=== PATIENT | male | born 1990 | race African-American/Black ===

== ENCOUNTER 2016-11-16 17:46 | Emergency (ER) | payer SELFPAY ==
[~2016-11-16] VITALS: Ht 177.8 cm; Wt 91.0 kg
[~2016-11-16 17:46] MED LIST: DOXY100C PO
[2016-11-16 18:01] VITALS: BP 128/67; PULSE 83; RESP 16; TEMP 98.8; O2SAT 99
--- NOTE | 2016-11-16 18:22 | PD ---
HPI Chief Complaint: Seizure Time Seen by Provider: 18:00 Travel History International Travel<30 days: No Contact w/Intl Traveler<30days: No Traveled to known affect area: No History of Present Illness HPI This 26-year-old male is brought by ambulance after having a seizure. He has a history of seizures and brain injury about 4 years ago. He fell and had a surgery on the left temporal area of his skull. He had seizures that started about a month after that. Recently he has been doing very well and has not been taking his medication because he has not been having seizures. He thinks he has not had a seizure for over 6 months. He was not drinking today. He feels well now. He does not recall the seizure PFSH Past Medical History Diminished Hearing: No Immunizations Current: Yes Seizures: Yes Past Surgical History Other Surgery: Yes (brain) Social History Alcohol Use: No Tobacco Use: Yes (5 cigs) Substance Use: No Allergies-Medications (Allergen,Severity, Reaction): Coded Allergies: PEANUTS (Verified Allergy, Severe, throat swells, 07/13/16) Reported Meds & Prescriptions Reported Meds & Active Scripts Active Doxycycline Hyclate 100 Mg Cap 100 Mg PO BID 10 Days Review of Systems General / Constitutional: No: Fever, Chills Eyes: No: Diploplia HENT: No: Headaches, Vertigo Cardiovascular: No: Chest Pain or Discomfort, Palpitations Respiratory: No: Cough, Shortness of Breath Gastrointestinal: No: Nausea, Vomiting Genitourinary: No: Urgency, Frequency, Oliguria Musculoskeletal: No: Myalgias, Arthralgias Skin: No Rash Neurologic: Positive: Seizures, No: Focal Abnormalities Endocrine: No: Heat Intolerance Hematologic/Lymphatic: No: Easy Bruising Physical Exam Narrative GENERAL: Well-developed male SKIN: Warm and dry. HEAD: Atraumatic. Normocephalic. EYES: Pupils equal and round. No scleral icterus. No injection or drainage. ENT: No nasal bleeding or discharge. Mucous membranes pink and moist. NECK: Trachea midline. No JVD. CARDIOVASCULAR: Regular rate and rhythm. No murmur appreciated. RESPIRATORY: No accessory muscle use. Clear to auscultation. Breath sounds equal bilaterally. GASTROINTESTINAL: Abdomen soft, non-tender, nondistended. Hepatic and splenic margins not palpable. MUSCULOSKELETAL: No obvious deformities. No clubbing. No cyanosis. No edema. NEUROLOGICAL: Awake and alert. No obvious cranial nerve deficits. Motor grossly within normal limits. Normal speech. PSYCHIATRIC: Appropriate mood and affect; insight and judgment normal. Data Data Last Documented VS Vital Signs Date Time Temp Pulse Resp B/P Pulse Ox O2 Delivery O2 Flow Rate FiO2 11/16/16 18:05 82 16 99 Room Air 11/16/16 18:01 98.8 128/67 MDM Medical Decision Making Medical Screen Exam Complete: Yes Emergency Medical Condition: Yes Medical Record Reviewed: Yes Differential Diagnosis Differential includes seizure disorder, noncompliance, Narrative Course This gentleman admits not to not taking his Keppra for several months. He does wish to be started on a prescription. He appears quite stable now and I don't think diagnostic testing is warranted Diagnosis Primary Impression: Seizure disorder Disposition: 01 DISCHARGE HOME Condition: Stable Duc Rawls MD Nov 16, 2016 18:22
[2016-11-16] MEDS ORDERED: LEVE500 PO (18:23)
[2016-11-16] MEDS ORDERED: levETIRAcetam 500 MG TAB PO ONE (18:30)
[2016-11-16] MEDS ORDERED: LEVE250 PO (18:31)
[2016-11-16 18:49] VITALS: BP 109/74
[2017-03-07] MEDS ORDERED: KEPP10002 PO (13:19)
== END 2016-11-16 19:14 | disposition home or self-care (01) ==
LOC: PHED 17:46
DX: G40.909 Epilepsy, unspecified, not intractable, without status epilepticus (principal); Z72.0 Tobacco use; Z86.69 Personal history of other diseases of the nervous system and sense organs
CPT/HCPCS: 99284

== ENCOUNTER 2017-02-05 23:01 | Emergency (ER) | payer SELFPAY ==
[~2017-02-05] VITALS: Ht 177.8 cm; Wt 96.5 kg
[~2017-02-05 23:01] MED LIST changes: -DOXY100C PO; +LEVE250 PO; +LEVE500 PO
[2017-02-05 23:23] VITALS: BP 122/76; PULSE 72; RESP 14; TEMP 98.1; O2SAT 99
[2017-02-05] MEDS ORDERED: LEVE250 PO (23:55)
[2017-03-07] MEDS ORDERED: KEPP10002 PO (13:19)
== END 2017-02-05 23:33 | disposition left against medical advice (07) ==
LOC: PHED 23:01
DX: S01.90XA Unspecified open wound of unspecified part of head, initial encounter (principal); X58.XXXA Exposure to other specified factors, initial encounter; Z53.21 Procedure and treatment not carried out due to patient leaving prior to being seen by health care provider
CPT/HCPCS: 99281

== ENCOUNTER 2017-02-05 23:40 | Inpatient (IN) | payer SELFPAY ==
[~2017-02-05] VITALS: Ht 180.3 cm; Wt 98.4 kg
[2017-02-05 23:42] VITALS: BP 120/83; PULSE 72; RESP 16; TEMP 98.6; O2SAT 98
[2017-02-05] MEDS ORDERED: LEVE250 PO (23:55)
[2017-02-06] VITALS (11 sets, daily range): BP systolic 120–141; BP diastolic 60–81; PULSE 58–78; RESP 16–20; TEMP 96.8–98; O2SAT 97–100
--- NOTE | 2017-02-06 01:23 | PD ---
HPI Chief Complaint: Head Injury Time Seen by Provider: 23:50 Travel History International Travel<30 days: No Contact w/Intl Traveler<30days: No Traveled to known affect area: No History of Present Illness HPI The patient is a 27 year old male who presents to the [facility] emergency department with a history of reportedly noticing scalp pain at 9 PM tonight. He reports that the scalp pain as a throbbing sensation. He reports that he began to palpate the area and noticed that there was a hard lump at the spot. The hard lump began to protrude through the skin and what appeared to be a piece of bone came out of the hole. The patient reports that his history is complicated by having a craniotomy related to an intracranial hemorrhage from a fall approximately a year and a half ago. His was reportedly in [place]. The patient reports that he has a history of seizure disorder after the intracranial hemorrhage. He reports that he has however not been on medication for seizure due to insurance problems. The patient reports that he last had a seizure a month and a half ago. He denies any recent trauma to his head or hitting his head. The patient reports that he is concerned that this is a piece the skull that came out of his scalp. The patient denies any recent fevers , cough, congestion, neck pain, chest pain, shortness of breath, abdominal pain , vomiting, diarrhea, urinary symptoms, or new neurologic symptoms. [facility] Past Medical History Narrative Medical The patient's past medical history is significant for an intracranial hemorrhage status post fall that is post craniotomy approximately a year and a half ago, history of seizure disorder, history of left shoulder decreased mobility after injury from prior seizure activity. Diminished Hearing: No Immunizations Current: Yes Seizures: Yes Influenza Vaccination: No Past Surgical History Narrative Surgical The patient's past surgical history is significant for a craniotomy. Other Surgery: Yes (brain) Social History Alcohol Use: Yes (occas. mix drinks) Tobacco Use: Yes (4-5 cigs a day) Substance Use: No Allergies-Medications (Allergen,Severity, Reaction): Coded Allergies: PEANUTS (Verified Allergy, Severe, throat swells, 02/05/17) Reported Meds & Prescriptions Reported Meds & Active Scripts Active Reported Keppra (Levetiracetam) 250 Mg Tab 500 Mg PO BID Narrative Medication He reports that he has not been taking this seizure medication due to problems with his insurance. Review of Systems Except as stated in HPI: all other systems reviewed are Neg General / Constitutional: No: Fever Eyes: No: Visual changes HENT: Positive: Headaches, No: Rhinorrhea, Congestion, Neck Stiffness, Neck Pain Cardiovascular: No: Chest Pain or Discomfort Respiratory: No: Cough, Shortness of Breath Gastrointestinal: No: Abdominal Pain Genitourinary: No: Dysuria Musculoskeletal: No: Pain Skin: Positive Other (scalp wound left side of head), No Rash Neurologic: No: Weakness, Focal Abnormalities, Change in Mentation, Slurred Speech, Sensory Disturbance Psychiatric: No: Depression Endocrine: No: Polydipsia Hematologic/Lymphatic: No: Easy Bruising Physical Exam Narrative General: The patient is a well-developed well-nourished male in no acute distress Head and Neck exam: Head is normocephalic, irregular shape to scalp and skull is noted on examination of the left side of the parietal and temporal scalp. The area of interest is a 0.5 cm defect with thin yellow drainage noted. This wound was cultured. There is no surrounding erythema, edema on examination, however the patient reports tenderness on palpation of the scalp surrounding the wound. Eyes: EOMI, pupils are equal round and reactive to light. Nose: Midline septum with pink mucous membranes Mouth: Dentition unremarkable. Moist mucus membranes. Posterior oropharynx is not erythematous. No tonsillar hypertrophy. Uvula midline. Airway patent. Neck: No palpable lymphadenopathy. No nuchal rigidity. No thyromegaly. Cardiovascular: Regular rate and rhythm without murmurs, gallops, or rubs. Lungs: Clear to auscultation bilaterally. No wheezes, rhonchi, or rales. Abdomen: Soft, without tenderness to palpation in all 4 quadrants of the abdomen. No guarding, rebound, or rigidity. Normal bowel sounds are audible. No tenderness on palpation of McBurney's point. Extremities: No clubbing, cyanosis, or edema. 2+ pulses in all 4 extremities. Back: No costovertebral angle tenderness to palpation. Neurologic Exam: Grossly nonfocal Skin Exam: No rash noted. Data Data Last Documented VS Vital Signs Date Time Temp Pulse Resp B/P Pulse Ox O2 Delivery O2 Flow Rate FiO2 02/06/17 02:06 98 Room Air 02/05/17 23:42 98.6 72 16 120/[address] Brain W/O Iv Contrast(Rout) (02/06/17 00:11) Wound Culture And Gram Stain (02/06/17 00:34) Complete Blood Count With Diff (02/06/17 01:46) Basic Metabolic Panel (Bmp) (02/06/17 01:46) Prothrombin Time / Inr (Pt) (02/06/17 01:46) Act Partial Throm Time (Ptt) (02/06/17 01:46) C-Reactive Protein (Crp) (02/06/17 01:46) Iv Access Insert/Monitor (02/06/17 01:46) Ecg Monitoring (02/06/17 01:46) Oximetry (02/06/17 01:46) Cefazolin 2 Gm Premix (Ancef 2 Gm Premix (02/06/17 02:00) Acetamin-Hydrocod 325-5 Mg ([place] 5-325 (02/06/17 02:00) Place In Observation (02/06/17 ) Vital Signs (Adult) Q4H (02/06/17 02:13) Activity Oob With Assistance (02/06/17 02:13) Crusher Wet Ground Mica / Telemetry .CONTINUOUS (02/06/17 02:13) Diet Heart Healthy (02/06/17 Breakfast) Sodium Chloride 0.9% Flush (Ns Flush) (02/06/17 02:15) Sodium Chloride 0.9% Flush (Ns Flush) (02/06/17 09:00) Case Management Consult (02/06/17 02:13) Naloxone Inj (Narcan Inj) (02/06/17 02:15) Consult Neurosurgery (02/06/17 ) Admit Order (Ed Use Only) (02/06/17 02:15) Labs Laboratory Tests Test 02/06/17 02:00 White Blood Count 9.7 TH/MM3 Red Blood Count 5.23 MIL/MM3 Hemoglobin 14.1 GM/DL Hematocrit 42.9 % Mean Corpuscular Volume 82.0 FL Mean Corpuscular Hemoglobin 26.9 PG Mean Corpuscular Hemoglobin 32.8 % Concent Red Cell Distribution Width 14.5 % Platelet Count 193 TH/MM3 Mean Platelet Volume 8.9 FL Neutrophils (%) (Auto) 61.2 % Lymphocytes (%) (Auto) 29.1 % Monocytes (%) (Auto) 7.9 % Eosinophils (%) (Auto) 1.3 % Basophils (%) (Auto) 0.5 % Neutrophils # (Auto) 5.9 TH/MM3 Lymphocytes # (Auto) 2.8 TH/MM3 Monocytes # (Auto) 0.8 TH/MM3 Eosinophils # (Auto) 0.1 TH/MM3 Basophils # (Auto) 0.1 TH/MM3 CBC Comment DIFF FINAL Differential Comment Prothrombin Time 11.0 SEC Prothromb Time International 1.0 RATIO Ratio Activated Partial 27.3 SEC Thromboplast Time Sodium Level 138 MEQ/L Potassium Level 5.1 MEQ/L Chloride Level 104 MEQ/L Carbon Dioxide Level 26.8 MEQ/L Anion Gap 7 MEQ/L Blood Urea Nitrogen 13 MG/DL Creatinine 0.62 MG/DL Estimat Glomerular Filtration 189 ML/MIN Rate Random Glucose 93 MG/DL Calcium Level 8.8 MG/DL C-Reactive Protein LESS THAN 0.29 MG/DL MDM Medical Decision Making Medical Screen Exam Complete: Yes Emergency Medical Condition: Yes Medical Record Reviewed: Yes Differential Diagnosis Skin infection, versus scalp wound tracking down to the dura Narrative Course During the course of the patients emergency department visit, the patients history, examination, and differential diagnosis were reviewed with the patient. The patient had a wound culture done of the scalp. The patient had a CT scan of the brain ordered. The patient was initially provided Lortab for pain. Radiology studies were reviewed and remarkable for white count is 9.7, hemoglobin 14.1, platelets 193 with a normal differential, basic metabolic profile is within normal limits, C-reactive protein is less than 0.29, PT PTT within normal limits The patients laboratory studies were reviewed and remarkable for CT scan of the brain shows evidence of a previous left frontal craniotomy with a few tiny bubbles of air in the deep subcutaneous tissues adjacent to the craniotomy flap which may indicate recent surgery or may reflect some type of penetrating injury. Given these findings, I did speak to the neurosurgeon on-call, Dr. Orellana. He requested that the patient be admitted to the hospitalist service. He requested that the patient be started on antibiotic and that he will see the patient's wound and images in consultation. The patients results were discussed with the patient, including the plan of care. I explained that further testing and/ or monitoring is indicated based on the patients history, examination, and/ or laboratory findings. Therefore, I recommended admission for additional evaluation. The patient expressed understanding and was agreeable with this plan. The patient was admitted to the hospital in stable condition and sent to a bed under the care of the [facility] hospitalist service. Physician Communication Physician Communication I Spoke to Dr. Orellana regarding the patient's findings on CT. He recommended that the patient be admitted to the hospitalist service and that he would see the patient in consultation and review the patient's wound on further examination as well as his imaging studies. He agreed with the plan for the patient to be started on antibiotic. The patient's case was discussed with Dr. Payne who did agree to admit the patient for further evaluation and treatment at this time. Diagnosis Primary Impression: Skin lesion Admitting Information Admitting Physician Requests: Nan Hu MD February 06, 2017 01:23
--- NOTE | 2017-02-06 01:25 | RADRPT ---
EXAM DATE/TIME: 02/06/2017 00:58 [place] COMPARISON: No previous studies available for comparison. INDICATIONS : Trauma, hit head. RADIATION DOSE: 42.12 CTDIvol (mGy) MEDICAL HISTORY : Seizures. Subdural hematoma. SURGICAL HISTORY : Craniotomy. ENCOUNTER: Initial ACUITY: 1 day PAIN SCALE: 5/10 LOCATION: cranial TECHNIQUE: Multiple contiguous axial images were obtained of the head. Using automated exposure control and adj ustment of the mA and/or kV according to patient size, radiation dose was kept as low as reasonably a chievable to obtain optimal diagnostic quality images. FINDINGS: The patient is status post left frontal craniotomy. There are a few tiny bubbles of air in the deep s ubcutaneous tissues adjacent to the craniotomy flap which may indicate recent surgery or may reflect some type of penetrating injury. Correlation recommended. There is moderate left orbitofrontal enceph alomalacia and mild left temporal encephalomalacia. There is very slight ex vacuo expansion of the fr ontal horn of left lateral ventricle. No evidence of brain shift or mass. No evidence of intracranial hemorrhage. There is nothing to suggest acute infarction or acute injury. The visualized facial sinuses and mastoids are clear. CONCLUSION: Previous left frontal craniotomy. Tiny bubbles of air in the subcutaneous tissues adjacent to the sole scraper niotomy flap as above. Underlying parenchymal brain encephalomalacia without evidence of acute intrac ranial process Flaco Schmidt MD on February 06, 2017 at 1:17 Board Certified Radiologist. This report was verified electronically.
[2017-02-06] MEDS ORDERED: ceFAZolin 2 GM PREMIX 50 ML IV ONE (02:00)
[2017-02-06] MEDS ORDERED: ACETAMINOPHEN/HYDROcodone 325 MG/5 MG TAB PO ONE (02:00)
[2017-02-06 02:08] LABS: AUTOMATED NEUTROPHIL # 5.9 TH/MM3 (1.8-7.7); BASOPHIL # 0.1 TH/MM3 (0-0.2); BASOPHIL % 0.5 % (0.0-2.0); EOSINOPHIL # 0.1 TH/MM3 (0-0.4); EOSINOPHIL % 1.3 % (0.0-4.0); HEMATOCRIT 42.9 % (39.0-51.0); HEMO FLAGS DIFF FINAL; LYMPH % 29.1 % (9.0-44.0); LYMPHOCYTE # 2.8 TH/MM3 (1.0-4.8); MEAN CORPUSCULAR HEMOGLOBIN 26.9 PG (27.0-34.0); MEAN CORPUSCULAR HGB CONC 32.8 % (32.0-36.0); MONO % 7.9 % (0.0-8.0); NEUT % 61.2 % (16.0-70.0); PLATELET COUNT 193 TH/MM3 (150-450); RED BLOOD COUNT 5.23 MIL/MM3 (4.50-5.90); RED CELL DISTRIBUTION WIDTH 14.5 % (11.6-17.2); WHITE BLOOD COUNT 9.7 TH/MM3 (4.0-11.0)
[2017-02-06] MEDS ORDERED: SODIUM CHLORIDE 0.9% FLUSH 10 ML FLUSH IV FLUSH PRN (02:15)
[2017-02-06] MEDS ORDERED: NALOXONE HCL 0.4 MG/ML AMP IV PRN (02:15)
[2017-02-06 02:24] LABS: APTT (PATIENT) 27.3 SEC (24.3-30.1)
[2017-02-06 02:30] LABS: ANION GAP 7 MEQ/L (5-15); BICARBONATE 26.8 MEQ/L (21.0-32.0); BLOOD UREA NITROGEN 13 MG/DL (7-18); CHLORIDE 104 MEQ/L (98-107); GLOMERULAR FILTRATION RATE 189 ML/MIN (>89); POTASSIUM 5.1 MEQ/L (3.5-5.1); SODIUM (NA) 138 MEQ/L (136-145)
--- NOTE | 2017-02-06 04:16 | HHI.HP ---
[facility] Primary Care Physician Admission Diagnosis Skull defect with scalp wound s/p remote craniotomy Diagnoses: Travel History International Travel<30 Days: No Contact w/Intl Traveler <30 Da: No Traveled to Known Affected Are: No History of Present Illness History from patient, ER physician communication, and review of medical records. Patient reported that last night, around 9 PM, he felt some headaches. He therefore checked his scalp, particularly at the prior surgical site area. He noted some discharge from the site and was able to scrape off some piece of skull reports he had craniotomy around this area about 1-1/2 years ago. He stated he suffered from seizures after this. Currently is under control with medications. He has been seizure free since 1-1/2 months ago. From that, patient denies any fevers/chills/nausea/vomiting/visual disturbance. Denies any dizziness/near syncopal episodes. Review of Systems Except as stated in HPI: all other systems reviewed are Neg Past Family Social History Past Medical History seizures post craniotomy Past Surgical History craniotomy 8th grade- right hip pin put in Allergies: Coded Allergies: PEANUTS (Verified Allergy, Severe, throat swells, 02/05/17) Family History none that he is aware of Social History social drinker 5 cigarrettes a day Physical Exam Vital Signs Vital Signs Date Time Temp Pulse Resp B/P Pulse Ox O2 Delivery O2 Flow Rate FiO2 02/06/17 03:43 98.0 67 18 122/60 100 02/06/17 02:51 60 16 124/81 99 Room Air 02/06/17 02:06 98 Room Air 02/05/17 23:42 98.6 72 16 120/83 98 Room Air Physical Exam GENERAL: This is a well-nourished, well-developed patient, in no apparent distress. SKIN: No rashes, ecchymoses or lesions. Cool and dry. HEAD: Atraumatic. Left temporal parietal area with visible tiny hole in the skull. Some discharge upon expression as well. EYES: No scleral icterus. No injection or drainage. ENT: Nose without bleeding, purulent drainage or septal hematoma. Airway patent. NECK: Trachea midline. No JVD Supple, nontender, no meningeal signs. CARDIOVASCULAR: Regular rate and rhythm without murmurs, gallops, or rubs. RESPIRATORY: Clear to auscultation. Breath sounds equal bilaterally. No wheezes , rales, or rhonchi. GASTROINTESTINAL: Abdomen soft, non-tender, nondistended. . No guarding. MUSCULOSKELETAL: Extremities without clubbing, cyanosis, or edema. No calf tenderness. NEUROLOGICAL: Awake and alert. Motor and sensory grossly within normal limits.Normal speech. Laboratory Laboratory Tests Test 02/06/17 02:00 White Blood Count 9.7 Red Blood Count 5.23 Hemoglobin 14.1 Hematocrit 42.9 Mean Corpuscular Volume 82.0 Mean Corpuscular Hemoglobin 26.9 Mean Corpuscular Hemoglobin 32.8 Concent Red Cell Distribution Width 14.5 Platelet Count 193 Mean Platelet Volume 8.9 Neutrophils (%) (Auto) 61.2 Lymphocytes (%) (Auto) 29.1 Monocytes (%) (Auto) 7.9 Eosinophils (%) (Auto) 1.3 Basophils (%) (Auto) 0.5 Neutrophils # (Auto) 5.9 Lymphocytes # (Auto) 2.8 Monocytes # (Auto) 0.8 Eosinophils # (Auto) 0.1 Basophils # (Auto) 0.1 CBC Comment DIFF FINAL Differential Comment Prothrombin Time 11.0 Prothromb Time International 1.0 Ratio Activated Partial 27.3 Thromboplast Time Sodium Level 138 Potassium Level 5.1 Chloride Level 104 Carbon Dioxide Level 26.8 Anion Gap 7 Blood Urea Nitrogen 13 Creatinine 0.62 Estimat Glomerular Filtration 189 Rate Random Glucose 93 Calcium Level 8.8 C-Reactive Protein LESS THAN 0.29 Date/Time Procedure Status Source Growth 02/06/17 00:40 Gram Stain Received Wound Scalp Pending 02/06/17 00:40 Wound Culture Received Wound Scalp Pending Result Diagram: 02/06/170 02/06/170 Imaging Last [address] 02/06/17 001 Signed Impressions: Service Date/Time: Monday, February 06, 2017 00:58 - CONCLUSION: Previous left frontal craniotomy. Tiny bubbles of air in the subcutaneous tissues adjacent to the craniotomy flap as above. Underlying parenchymal brain encephalomalacia without evidence of acute intracranial process Flaco Schmidt MD Assessment and Plan Assessment and Plan Impression: Tiny bubbles of air in the subcutaneous tissues adjacent to craniotomy flap etiology unclear. Patient does not look septic clinically. History of seizures History of craniotomystatus post traumatic fall injury about 1-1/2 years ago Plan: Cultures were sent. We'll follow up. For now, we will continue with cefazolin 1 g IV every 8 hours. Again, patient does not look septic. Neurosurgery opinion. Seizure precautions. Resume home meds. DVT prophylaxison SCD. Discussed Condition With patient, ER MD, nursing staff Ruben Payne MD February 06, 2017 04:16
[2017-02-06] MEDS: levETIRAcetam 500 MG TAB PO SCH ×2 (09:00→21:22)
[2017-02-06] MEDS: levETIRAcetam 250 MG TAB PO SCH ×2 (09:00→09:38)
[2017-02-06] MEDS: SODIUM CHLORIDE 0.9% FLUSH 10 ML FLUSH IV FLUSH SCH ×2 (09:37→21:22)
--- NOTE | 2017-02-06 09:50 | HHI.PR ---
Subjective Remarks Follow up headaches. Patient states he gets throbbing intermittent headaches when he wakes up. Has been out of his seizure medication for 2 months, due to lack of pcp and insurance. Denies any chest pain, dizziness, sob or fevers. Objective Vitals Vital Signs Date Time Temp Pulse Resp B/P Pulse Ox O2 Delivery O2 Flow Rate FiO2 02/06/17 07:33 97.7 68 18 132/75 98 02/06/17 05:03 61 02/06/17 04:44 97.4 69 20 126/74 98 02/06/17 03:43 98.0 67 18 122/60 100 02/06/17 02:51 60 16 124/81 99 Room Air 02/06/17 02:06 98 Room Air 02/05/17 23:42 98.6 72 16 120/83 98 Room Air I/O 02/05/17 02/05/17 02/05/17 02/06/17 02/06/17 02/06/17 06:59 14:59 22:59 06:59 14:59 22:59 Intake Total 120 ml Balance 120 ml Intake Oral 120 ml Result Diagram: 02/06/17 0200 02/06/17 0200 Imaging Last Impressions Head CT 02/06/17 0011 Signed Impressions: Service Date/Time: Monday, February 06, 2017 00:58 - CONCLUSION: Previous left frontal craniotomy. Tiny bubbles of air in the subcutaneous tissues adjacent to the craniotomy flap as above. Underlying parenchymal brain encephalomalacia without evidence of acute intracranial process Flaco Schmidt MD Objective Remarks GENERAL: This is a well-nourished, well-developed patient, in no apparent distress. SKIN: No rashes, ecchymoses or lesions. Cool and dry. HEAD: Atraumatic. Left temporal parietal area with visible tiny hole in the skull. Serous drainage noted EYES: No scleral icterus. No injection or drainage. ENT: Nose without bleeding, purulent drainage or septal hematoma. Airway patent. NECK: Trachea midline. No JVD Supple, nontender, no meningeal signs. CARDIOVASCULAR: Regular rate and rhythm without murmurs, gallops, or rubs. RESPIRATORY: Clear to auscultation. Breath sounds equal bilaterally. No wheezes , rales, or rhonchi. GASTROINTESTINAL: Abdomen soft, non-tender, nondistended. . No guarding. MUSCULOSKELETAL: Extremities without clubbing, cyanosis, or edema. No calf tenderness. NEUROLOGICAL: Awake and alert. Motor and sensory grossly within normal limits.Normal speech. Medications and IVs Current Medications Medications (Trade) Dose Ordered Sig/Lizeth Route Start Time Stop Time Status Last Admin (NS Flush) 2 ml UNSCH PRN IV FLUSH 02/06/17 02:15 (NS Flush) 2 ml BID IV FLUSH 02/06/17 09:00 02/06/17 09:37 Naloxone HCl 0.4 mg 0.4 mg UNSCH PRN IV 02/06/17 02:15 (Ancef Inj/NS Inj) 100 ml @ 200 mls/hr Q8H IV 02/06/17 10:00 02/06/17 09:37 (Keppra) 500 mg BID PO 02/06/17 09:00 Urinary Catheter: No Vascular Central Line Catheter: No A/P Problem List: (1) Seizure disorder ICD Code: G40.909 Status: Acute (2) Skin lesion ICD Code: L98.9 Status: Acute (3) Head ache ICD Code: R51 Status: Acute Assessment and Plan 27 y/o male with a history of craniotomy 1 1/2 years ago due to a fall and SDH, come to the ED with complaints of a headache and drainage from old craniotomy site. Patient has also been out of seizure medications for 2 months due to lack of insurance and PCP. No seizure activity in 2 months. Headache, secondary to Scalp wound, tiny hole in old craniotomy wound -Cultures were sent. We'll follow up. -Cont with cefazolin 1 g IV every 8 hours. -Consult Neurosurgery for recommendations -Pain management with PO [place] Seizure, chronic, off medications for 2 months -Seizure precautions. -Resume home meds, Keppra BID. Case management for medication assistance DVT prophylaxison SCD. Discharge Planning Pending neurosurgery consult Marisa Garcia February 06, 2017 09:50
[2017-02-06] MEDS: ACETAMINOPHEN/HYDROcodone 325 MG/5 MG TAB PO PRN ×3 (11:02→22:03)
--- NOTE | 2017-02-06 13:30 | MB ---
cc: TIO TONY M.D. DATE OF CONSULTATION 02/06/2017 REASON FOR CONSULTATION Left craniotomy wound dehiscence. HISTORY OF PRESENT ILLNESS This is a 27 year-old -[place] gentleman who relates having a left craniotomy in [place] after of traumatic cerebral hemorrhage. He subsequently also suffered from recurrent seizures and was placed on Keppra, but has not been compliant with this medication mainly because he states he cannot afford it and does not have medical insurance. He relates having generalized seizures every few months with the last seizure about a month and a half ago up. He denies any falls or trauma to the head associated with these seizures. Apparently he presented to the emergency room on May 08, 2016 and was found to have a left-sided facial swelling and a draining wound in the left temporal lesion. This was subsequent to his craniotomy. He states that he was placed on some antibiotics and this eventually cleared up. The past evening he started noticing left-sided throbbing pain in the scalp area and he also noticed a lump on this area which was tender and he started picking on this and noticed there was a small portion of bone that had protruded through the skin and subsequently started to drain small amounts of serosanguineous type fluid. No clear CSF drainage was noted. He states he has intermittent headaches since last evening, although improved after this drainage. CT scan of the head obtained reveals a left craniotomy bone flap with several small plates in place. There is partial absorption of the bone flap. There is some soft tissue air bubbles noted on the left side. There is an area of encephalomalacia in the left there is a large area of encephalomalacia on the left frontal lobe relate to his previous hemorrhage. No intracranial acute abnormality is noted. The emergency room physician obtained some cultures from this left scalp drainage area and he was started on IV Ancef. Denies any fevers or chills and his white count is normal. PAST MEDICAL HISTORY 1. Left frontal lobe hemorrhage status post craniotomy proximally two years ago in [place]. 2. Seizure disorder, noncompliance with seizure medications. MEDICATIONS Keppra 500 mg b.i.d. which he is not taking. ALLERGIES NO KNOWN DRUG ALLERGIES. SOCIAL HISTORY He is single. He smokes five seconds a day and drinks alcohol on a social basis. REVIEW OF SYSTEMS Complains of left-sided headache and has complained of mild intermittent drainage in the left frontotemporal aspect. No fevers or chills. No recent weight gain or weight loss. No double vision or blurred vision. He complains of difficulty with finding words and expression and short-term memory loss ever since his injury two years ago. Denies any weakness or incontinence or any numbness or paresthesias. No history of easy bleeding or bruising. He does experience generalized seizures every few months. LABORATORY STUDIES White blood cell count 9.7, hemoglobin 14.1, platelet count 193, PT 11, INR 1.0, PTT 27.3. Sodium 138, potassium 5.1, BUN 13, creatinine 0.62, glucose 93. EXAMINATION VITALS: Temperature 97.7, pulse is 68, respiratory rate 18, blood pressure 132/75, oxygen saturation 98% on room air. HEAD: He has about a 1 cm area of wound dehiscence in the mid frontal aspect and some serosanguineous slight fluid drainage noted. There is no soft tissue swelling or any erythema or any significant tenderness associated with this. NECK: Supple with no guarding or rigidity. CHEST: Clear bilaterally. HEART: Regular rate rhythm. Normal S1 and S2. ABDOMEN: Soft, nontender, positive bowel sounds. EXTREMITIES: No cyanosis or edema. NEUROLOGIC: He is awake and alert. Pupils are equal and reactive. Extraocular muscles are intact. Face is symmetric. Tongue is midline. He moves all four extremities with 5/5 strength. Negative Babinski. Light touch sensation intact. Speech is fluent. IMPRESSION 1. A history of a left frontal lobe traumatic hemorrhage status post craniotomy in [place] the proximally two years ago. He appears to have subsequent subgaleal infection which was treated with antibiotics over a year ago and appears to have resolved at that point. He now has a small area of wound dehiscence and relates bone fragment being extruded through this with underlying partial bone flap absorption. The differential diagnosis includes bone flap absorption with area of wound dehiscence, as well as underlying a bone flap osteomyelitis. No abscesses noted. 2. Seizure disorder with recurrent seizures and noncompliance with anticonvulsant medications. 3. Short-term memory loss with some mild expressive dysphasia related to the large left frontal lobe injury and subsequent encephalomalacia. PLAN I am concerned about the possibility of underlying bone flap osteomyelitis along with necrosis given the delayed wound dehiscence. We will see what the cultures grow out and also obtain a sed rate and continue on IV antibiotics. We will also consult infectious disease service for their opinion in this aspect. His seizure medications will be resumed. I have discussed the findings with the patient and further treatment options will depend on the evolution of his clinical course and further workup. He understands and is in agreement. MD KRISTIN Turner/SAPNA /11:02 AM /1:15 PM
--- NOTE | 2017-02-06 14:19 | PD.CONS ---
History of Present Illness Service Infectious Diseases Consult Requested By Dr Aurelio Orellana Reason for Consult Evaluate patient for possible bone flap osteomyelitis Primary Care Physician No Primary Care Physician Diagnoses: History of Present Illness Patient seen and examined. Records reviewed. Patient is a 27-year-old male, who had traumatic brain injury from a fall, has had previous left craniotomy and subsequently developed seizures after that. He has not been taking his anticonvulsant agents because he could not afford the medication. He gets very infrequent seizures. He presented to the hospital this time for evaluation of pain on the area where he had his craniotomy, and headache. He also got a piece of tissue, question bone and this worried him and he presented to the hospital for further evaluation and treatment. He has not really had any problem with that area in the past. He was diagnosed to have a left temporal abscess, folliculitis back in April 2016. On a reading that ER visit it was felt to be more of a superficial infection. Culture grew MSSA. He was given an oral antibiotic which he took for at least 10 days. He has not had any subsequent problem after that. He has not had any headache prior to this current problem. Denies any fever or chills or sweats. He has not had any recent trauma. Patient's last episode of seizure was about a month and a half ago. Since admission he has not been febrile. WBC is normal. ESR and C-reactive protein normal. Imaging study is concerning for possible infection overlying that bone flap. Patient still complaining of pain over he had the open wound. Infectious disease consultations were requested to evaluate the patient. Review of Systems Constitutional: DENIES: Fever, Chills, Night Sweats Eyes: DENIES: Eye pain Ears, nose, mouth, throat: DENIES: Nasal discharge, Oral lesions, Throat pain, Ear Pain, Sinus Pain, Toothache Respiratory: DENIES: Cough, Shortness of breath Cardiovascular: DENIES: Chest pain, Palpitations Gastrointestinal: DENIES: Abdominal pain, Diarrhea, Nausea, Vomiting, Difficulty Swallowing Genitourinary: DENIES: Dysuria Musculoskeletal: DENIES: Joint pain, Muscle aches, Joint Swelling, Back pain Integumentary: DENIES: Rash Neurologic: COMPLAINS OF: Headache, DENIES: Localized weakness Psychiatric: DENIES: Confusion, Hallucinations Past Family Social History Allergies: Coded Allergies: PEANUTS (Verified Allergy, Severe, throat swells, 02/05/17) Past Medical History TBI from fall Seizures post craniotomy Past Surgical History Previous craniotomy for L cerebral hemorrhage Active Ordered Medications Huy Mead Social History Lives with his sister Social drinker Smokes 5 cigarettes per day Denies illicit drugs Physical Exam Vital Signs Vital Signs Date Time Temp Pulse Resp B/P Pulse Ox O2 Delivery O2 Flow Rate FiO2 02/06/17 12:42 14 02/06/17 07:33 97.7 68 18 132/75 98 02/06/17 05:03 61 02/06/17 04:44 97.4 69 20 126/74 98 02/06/17 03:43 98.0 67 18 122/60 100 02/06/17 02:51 60 16 124/81 99 Room Air 02/06/17 02:06 98 Room Air 02/05/17 23:42 98.6 72 16 120/83 98 Room Air Physical Exam GENERAL: Patient is a well-nourished, well-developed patient, awake and alert , not in respiratory distress. SKIN: Warm and dry. No generalized rash, no ecchymoses and no evidence of embolic lesions. HEAD: Normocephalic. Has an open wound with crusting, tender to palpation. Anterior to this is an area with purulent drainage, not tender. No temporal wasting, or tenderness. EYES: [place] conjunctiva. No petechia or hemorrhage. Pupils equal, round and reactive to light. Extraocular movements full and intact. No scleral icterus. No injection or drainage. EARS, NOSE AND THROAT: Nose without bleeding or purulent nasal discharge. No sinus tenderness. Mucous membranes pink and moist. No oral lesions noted. No exudate. No oral thrush. NECK: Trachea midline. Supple and not tender, no meningeal signs CARDIOVASCULAR: Regular rate and rhythm. No murmurs, rubs or gallops heard RESPIRATORY: Clear to auscultation. Breath sounds equal bilaterally. No rales , wheezing or rhonchi ABDOMEN: Soft, non-tender, nondistended. Bowel sounds present and normoactive. No guarding. No rebound. No organomegaly. EXTREMITIES: No clubbing, cyanosis, or edema.No joint effusion, has good ROM. No calf tenderness. Well perfused and warm. NEUROLOGICAL: Awake and alert. Cranial nerves grossly intact. Motor grossly within normal limits. PSYCHIATRIC: Normal affect, calm and cooperative. LINE: No evidence of infection Laboratory Laboratory Tests Test 02/06/17 02/06/17 02:00 11:53 White Blood Count 9.7 Red Blood Count 5.23 Hemoglobin 14.1 Hematocrit 42.9 Mean Corpuscular Volume 82.0 Mean Corpuscular Hemoglobin 26.9 Mean Corpuscular Hemoglobin 32.8 Concent Red Cell Distribution Width 14.5 Platelet Count 193 Mean Platelet Volume 8.9 Neutrophils (%) (Auto) 61.2 Lymphocytes (%) (Auto) 29.1 Monocytes (%) (Auto) 7.9 Eosinophils (%) (Auto) 1.3 Basophils (%) (Auto) 0.5 Neutrophils # (Auto) 5.9 Lymphocytes # (Auto) 2.8 Monocytes # (Auto) 0.8 Eosinophils # (Auto) 0.1 Basophils # (Auto) 0.1 CBC Comment DIFF FINAL Differential Comment Prothrombin Time 11.0 Prothromb Time International 1.0 Ratio Activated Partial 27.3 Thromboplast Time Sodium Level 138 Potassium Level 5.1 Chloride Level 104 Carbon Dioxide Level 26.8 Anion Gap 7 Blood Urea Nitrogen 13 Creatinine 0.62 Estimat Glomerular Filtration 189 Rate Random Glucose 93 Calcium Level 8.8 C-Reactive Protein LESS THAN 0.29 Erythrocyte Sedimentation Rate 1 Date/Time Procedure Status Source Growth 02/06/17 00:40 Gram Stain - Final Resulted Wound Scalp 02/06/17 00:40 Wound Culture Resulted Wound Scalp Pending Result Diagram: 02/06/17 0200 02/06/17 0200 Imaging RADIOLOGY STUDIES/FILMS REVIEWED Head CT 02/06/17 0011 Signed Impressions: Service Date/Time: Monday, February 06, 2017 00:58 - CONCLUSION: Previous left frontal craniotomy. Tiny bubbles of air in the subcutaneous tissues adjacent to the craniotomy flap as above. Underlying parenchymal brain encephalomalacia without evidence of acute intracranial process Flaco Schmidt MD Assessment and Plan Assessment and Plan IMPRESSION Draining wound from previous craniotomy incision, has 2 draining areas, very worrisome for infected bone flap - ESR and CRP normal Previous L temporal area abscess with MSSA, ?same area involved RECOMMENDATION 2 BC Continue IV Ancef Patient has 2 draining areas now, and possibly needs some debridement and evaluation Neurosurgery following Follow C/S Course of Abx will depend on results of work-up I will follow along with you Thank you for this consultation Discussed Condition With Explained plan to the patient Goldie Clayton MD February 06, 2017 14:19
[2017-02-06] MEDS: ceFAZolin 2 GM PREMIX 50 ML IV SCH (17:33)
[2017-02-07] MEDS: ceFAZolin 2 GM PREMIX 50 ML IV SCH ×3 (01:40→17:22)
[2017-02-07] MEDS: ACETAMINOPHEN/HYDROcodone 325 MG/5 MG TAB PO PRN ×3 (03:58→17:21)
[2017-02-07 04:12] VITALS: BP 130/85; PULSE 73; RESP 16; TEMP 96.6; O2SAT 98
[2017-02-07 08:30] LABS: AUTOMATED NEUTROPHIL # 4.3 TH/MM3 (1.8-7.7); BASOPHIL % 0.3 % (0.0-2.0); EOSINOPHIL # 0.1 TH/MM3 (0-0.4); EOSINOPHIL % 1.7 % (0.0-4.0); HEMATOCRIT 42.9 % (39.0-51.0); HEMO FLAGS DIFF FINAL; LYMPH % 32.9 % (9.0-44.0); LYMPHOCYTE # 2.5 TH/MM3 (1.0-4.8); MEAN CELL VOLUME 82.8 FL (80.0-100.0); MEAN CORPUSCULAR HEMOGLOBIN 27.4 PG (27.0-34.0); MEAN CORPUSCULAR HGB CONC 33.1 % (32.0-36.0); MONO % 8.7 % (0.0-8.0); NEUT % 56.4 % (16.0-70.0); PLATELET COUNT 184 TH/MM3 (150-450); RED BLOOD COUNT 5.19 MIL/MM3 (4.50-5.90); RED CELL DISTRIBUTION WIDTH 14.3 % (11.6-17.2); WHITE BLOOD COUNT 7.7 TH/MM3 (4.0-11.0)
[2017-02-07 08:32] VITALS: BP 115/72; PULSE 59; RESP 20; TEMP 96.9; O2SAT 98
[2017-02-07] MEDS: levETIRAcetam 500 MG TAB PO SCH ×2 (09:43→21:55)
[2017-02-07] MEDS: SODIUM CHLORIDE 0.9% FLUSH 10 ML FLUSH IV FLUSH SCH ×2 (09:45→21:55)
[2017-02-07 11:06] VITALS: PULSE 102
--- NOTE | 2017-02-07 11:43 | HHI.PR ---
Subjective Remarks Follow up headache and old craniotomy wounds. Patient sitting up in bed watching TV. States Dr. Orellana was just in and may plan surgery on Sunday. He states he still has headaches but the medication is helping. Denies any chest pain, sob, fever or chills. Does state he has another wound on his head that he found. Lower then the first hole on the left temporal area, drainage yellowish serous fluid. Objective Vitals Vital Signs Date Time Temp Pulse Resp B/P Pulse Ox O2 Delivery O2 Flow Rate FiO2 02/07/17 11:06 102 02/07/17 08:32 96.9 59 20 115/72 98 02/07/17 04:12 96.6 73 16 130/85 98 02/06/17 22:46 97.1 64 17 141/66 98 02/06/17 21:31 58 02/06/17 20:37 96.8 64 18 121/77 98 02/06/17 17:31 16 02/06/17 15:06 97.6 78 18 120/80 97 I/O 02/06/17 02/06/17 02/06/17 02/07/17 02/07/17 02/07/17 07:00 15:00 23:00 07:00 15:00 23:00 Intake Total 120 ml 240 ml Balance 120 ml 240 ml Intake Oral 120 ml 240 ml # Voids 2 Result Diagram: 02/07/17 0721 02/06/17 0200 Imaging Last Impressions Head CT 02/06/17 0011 Signed Impressions: Service Date/Time: Monday, February 06, 2017 00:58 - CONCLUSION: Previous left frontal craniotomy. Tiny bubbles of air in the subcutaneous tissues adjacent to the craniotomy flap as above. Underlying parenchymal brain encephalomalacia without evidence of acute intracranial process Flaco Schmidt MD Objective Remarks GENERAL: This is a well-nourished, well-developed patient, in no apparent distress. SKIN: No rashes, ecchymoses or lesions. Cool and dry. HEAD: Atraumatic. Left temporal parietal area with visible 2 temporal holes in the skull. Yellowish Serous drainage noted EYES: No scleral icterus. No injection or drainage. ENT: Nose without bleeding, purulent drainage or septal hematoma. Airway patent. NECK: Trachea midline. No JVD Supple, nontender, no meningeal signs. CARDIOVASCULAR: Regular rate and rhythm without murmurs, gallops, or rubs. RESPIRATORY: Clear to auscultation. Breath sounds equal bilaterally. No wheezes , rales, or rhonchi. GASTROINTESTINAL: Abdomen soft, non-tender, nondistended. . No guarding. MUSCULOSKELETAL: Extremities without clubbing, cyanosis, or edema. No calf tenderness. NEUROLOGICAL: Awake and alert. Motor and sensory grossly within normal limits.Normal speech. Medications and IVs Current Medications Medications (Trade) Dose Ordered Sig/Lizeth Route Start Time Stop Time Status Last Admin (NS Flush) 2 ml UNSCH PRN IV FLUSH 02/06/17 02:15 (NS Flush) 2 ml BID IV FLUSH 02/06/17 09:00 02/07/17 09:45 (Narcan Inj) 0.4 mg UNSCH PRN IV 02/06/17 02:15 (Keppra) 500 mg BID PO 02/06/17 09:00 02/07/17 09:43 Acetaminophen/ Hydrocodone Bitart 1 tab 1 tab Q6H PRN PO 02/06/17 10:30 02/07/17 10:05 (Ancef 2 Gm Premix) 50 ml @ 100 mls/hr Q8H IV 02/06/17 18:00 02/07/17 09:45 A/P Problem List: (1) Seizure disorder ICD Code: G40.909 Status: Acute (2) Skin lesion ICD Code: L98.9 Status: Acute (3) Head ache ICD Code: R51 Status: Acute Assessment and Plan 27 y/o male with a history of craniotomy 1 1/2 years ago due to a fall and SDH, come to the ED with complaints of a headache and drainage from old craniotomy site. Patient has also been out of seizure medications for 2 months due to lack of insurance and PCP. No seizure activity in 2 months. Headache, secondary to Scalp wound, 2 temporal holes in old craniotomy wound, new one found below the first -Cultures were sent. We'll follow up. ID Following -Cont with cefazolin 1 g IV every 8 hours per ID. -Consult Neurosurgery for recommendations, possible surgery on Sunday -Pain management with PO [place] Seizure, chronic, off medications for 2 months -Seizure precautions. -Resume home meds, Keppra BID. Case management for medication assistance DVT prophylaxison SCD. Discharge Planning Surgery pending Marisa Garcia February 07, 2017 11:43
--- NOTE | 2017-02-07 11:54 | HHI.NSPN ---
History Interval History 27 year-old -[place]inamese gentleman who relates having a left craniotomy in [place] after of traumatic cerebral hemorrhage. He subsequently also suffered from recurrent seizures and was placed on Keppra, but has not been compliant with this medication mainly because he states he cannot afford it and does not have medical insurance. He relates having generalized seizures every few months with the last seizure about a month and a half ago up. He denies any falls or trauma to the head associated with these seizures. Apparently he presented to the emergency room on May 08, 2016 and was found to have a left-sided facial swelling and a draining wound in the left temporal lesion. This was subsequent to his craniotomy. He states that he was placed on some antibiotics and this eventually cleared up. The past evening he started noticing left-sided throbbing pain in the scalp area and he also noticed a lump on this area which was tender and he started picking on this and noticed there was a small portion of bone that had protruded through the skin and subsequently started to drain small amounts of serosanguineous type fluid. No clear CSF drainage was noted. He states he has intermittent headaches since last evening, although improved after this drainage. CT scan of the head obtained reveals a left craniotomy bone flap with several small plates in place. There is partial absorption of the bone flap. There is some soft tissue air bubbles noted on the left side. There is an area of encephalomalacia in the left there is a large area of encephalomalacia on the left frontal lobe relate to his previous hemorrhage. No intracranial acute abnormality is noted. The emergency room physician obtained some cultures from this left scalp drainage area and he was started on IV Ancef. Denies any fevers or chills and his white count is normal. 02/07: Has not noted much drainage from the scalp small areas of dehiscence. Review of Systems General: Negative for: fever, chills, insomnia Respiratory: Negative for: shortness of breath, cough, sputum Cardiovascular: Negative for: chest pain, palpitations, orthopnea Gastrointestinal: Negative for: nausea, vomitting, diarrhea, constipation Genitourinary: Negative for: urinary burning, urinary frequency, urinary urgency Exam Results Vital Signs Date Time Temp Pulse Resp B/P Pulse Ox O2 Delivery O2 Flow Rate FiO2 02/07/17 11:06 102 02/07/17 08:32 96.9 20 115/72 98 02/06/17 02:51 Room Air Intake and Output 02/06/17 02/06/17 02/07/17 08:00 16:00 00:00 Intake Total 120 ml Balance 120 ml Physical Examination HEAD: He has about a 1 cm area of wound dehiscence in the mid frontal aspect and no drainage noted. There is no soft tissue swelling or any erythema although does complain of tenderness along the frontal temporal aspect to palpation. NECK: Supple with no guarding or rigidity. CHEST: Clear bilaterally. HEART: Regular rate rhythm. Normal S1 and S2. ABDOMEN: Soft, nontender, positive bowel sounds. EXTREMITIES: No cyanosis or edema. NEUROLOGIC: He is awake and alert. Pupils are equal and reactive. Extraocular muscles are intact. Face is symmetric. Tongue is midline. He moves all four extremities with 5/5 strength. Negative Babinski. Light touch sensation intact. Speech is fluent. Lab, Micro, Other Results Laboratory Tests Test 02/07/17 07:21 White Blood Count 7.7 Red Blood Count 5.19 Hemoglobin 14.2 Hematocrit 42.9 Mean Corpuscular Volume 82.8 Mean Corpuscular Hemoglobin 27.4 Mean Corpuscular Hemoglobin 33.1 Concent Red Cell Distribution Width 14.3 Platelet Count 184 Mean Platelet Volume 9.1 Neutrophils (%) (Auto) 56.4 Lymphocytes (%) (Auto) 32.9 Monocytes (%) (Auto) 8.7 Eosinophils (%) (Auto) 1.7 Basophils (%) (Auto) 0.3 Neutrophils # (Auto) 4.3 Lymphocytes # (Auto) 2.5 Monocytes # (Auto) 0.7 Eosinophils # (Auto) 0.1 Basophils # (Auto) 0.0 CBC Comment DIFF FINAL Differential Comment Date/Time Procedure Status Source Growth 02/06/17 19:09 Aerobic Blood Culture - Preliminary Resulted Blood Peripheral NO GROWTH IN 1 DAY 02/06/17 19:09 Anaerobic Blood Culture - Preliminary Resulted Blood Peripheral NO GROWTH IN 1 DAY 02/06/17 00:40 Gram Stain - Final Resulted Wound Scalp 02/06/17 00:40 Wound Culture - Preliminary Resulted Staphylococcus Aureus Medical Decision Making Impression and Plan 27-year-old man with a remote history of left craniotomy for frontal lobe hemorrhage evacuation and now appears to have small areas of wound dehiscence without much drainage. He is on IV Ancef and cultures are growing out staph aureus. I'm concerned about the possibility of underlying osteomyelitis with bone flap necrosis and discussed debridement with craniectomy and possible bone flap removal. He informs me that his mother would like to be here for the surgery and currently she is in the [place]. Accordingly we'll continue with medical management for now and plan for debridement the next few days so his mother can travel back here. Toy Orellana MD February 07, 2017 11:54
[2017-02-07 12:24] VITALS: BP 131/83; PULSE 62; RESP 20; TEMP 97.4; O2SAT 98
[2017-02-07 12:58] LABS: ALT (GPT) 54 U/L (12-78)
[2017-02-07 13:01] LABS: ALKALINE PHOSPHATASE 36 U/L (45-117); ANION GAP 10 MEQ/L (5-15); AST (GOT) 36 U/L (15-37); BICARBONATE 22.9 MEQ/L (21.0-32.0); BLOOD UREA NITROGEN 15 MG/DL (7-18); CHLORIDE 106 MEQ/L (98-107); GLOMERULAR FILTRATION RATE 147 ML/MIN (>89); POTASSIUM 4.3 MEQ/L (3.5-5.1); SODIUM (NA) 139 MEQ/L (136-145); TOTAL BILIRUBIN ADULT 0.2 MG/DL (0.2-1.0)
[2017-02-07 16:01] VITALS: BP 135/69; PULSE 64; RESP 20; TEMP 97.2; O2SAT 98
[2017-02-07 20:00] VITALS: BP 133/85; PULSE 63; RESP 20; TEMP 96.5; O2SAT 97
[2017-02-07] MEDS: ACETAMINOPHEN/HYDROcodone 325 MG/10 MG TAB PO PRN (23:50)
[2017-02-08] VITALS (7 sets, daily range): BP systolic 101–138; BP diastolic 58–81; PULSE 57–68; RESP 20; TEMP 96.6–98.3; O2SAT 91–100
[2017-02-08] MEDS: ceFAZolin 2 GM PREMIX 50 ML IV SCH ×3 (01:40→17:49)
--- NOTE | 2017-02-08 02:41 | RADRPT ---
EXAM DATE/TIME: 02/08/2017 02:27 [facility] COMPARISON: CT BRAIN W/O CONTRAST, February 06, 2017, 0:58. INDICATIONS : Follow up for osteomyelitis. RADIATION DOSE: 40.46 CTDIvol (mGy) MEDICAL HISTORY : Seizures. Subdural hematoma SURGICAL HISTORY : Craniotomy. ENCOUNTER: Subsequent ACUITY: 2 days PAIN SCALE: 4/10 LOCATION: cranial TECHNIQUE: Multiple contiguous axial images were obtained of the head. Using automated exposure control and adj ustment of the mA and/or kV according to patient size, radiation dose was kept as low as reasonably a chievable to obtain optimal diagnostic quality images. FINDINGS: Soft tissue air adjacent to previous left frontal craniotomy has resolved in the interim. Intracrania l structures are stable with encephalomalacia in the left frontal and temporal regions, unchanged. No new acute findings identified. Specifically, no evidence of intracranial mass or hemorrhage. Nothing to suggest acute infarction. Extracranial structures otherwise stable, benign and intact. CONCLUSION: Interval resolution of soft tissue air adjacent to previous left frontal craniotomy. Stable brain leticia earance. Flaco Schmidt MD on February 08, 2017 at 2:34 Board Certified Radiologist. This report was verified electronically.
[2017-02-08] MEDS: ACETAMINOPHEN/HYDROcodone 325 MG/10 MG TAB PO PRN ×3 (06:31→18:46)
[2017-02-08] MEDS: levETIRAcetam 500 MG TAB PO SCH ×2 (09:52→21:44)
[2017-02-08] MEDS: SODIUM CHLORIDE 0.9% FLUSH 10 ML FLUSH IV FLUSH SCH ×2 (09:53→21:44)
--- NOTE | 2017-02-08 10:11 | HHI.NSPN ---
(Shamir Taylor) History Chief Complaint: left headache with wound dehiscence and drainage. (Shamir Taylor) Interval History 27 year-old -[place] gentleman who relates having a left craniotomy in [place] after of traumatic cerebral hemorrhage. He subsequently also suffered from recurrent seizures and was placed on Keppra, but has not been compliant with this medication mainly because he states he cannot afford it and does not have medical insurance. He relates having generalized seizures every few months with the last seizure about a month and a half ago up. He denies any falls or trauma to the head associated with these seizures. Apparently he presented to the emergency room on May 08, 2016 and was found to have a left-sided facial swelling and a draining wound in the left temporal lesion. This was subsequent to his craniotomy. He states that he was placed on some antibiotics and this eventually cleared up. The past evening he started noticing left-sided throbbing pain in the scalp area and he also noticed a lump on this area which was tender and he started picking on this and noticed there was a small portion of bone that had protruded through the skin and subsequently started to drain small amounts of serosanguineous type fluid. No clear CSF drainage was noted. He states he has intermittent headaches since last evening, although improved after this drainage. CT scan of the head obtained reveals a left craniotomy bone flap with several small plates in place. There is partial absorption of the bone flap. There is some soft tissue air bubbles noted on the left side. There is an area of encephalomalacia in the left there is a large area of encephalomalacia on the left frontal lobe relate to his previous hemorrhage. No intracranial acute abnormality is noted. The emergency room physician obtained some cultures from this left scalp drainage area and he was started on IV Ancef. Denies any fevers or chills and his white count is normal. 02/07: Has not noted much drainage from the scalp small areas of dehiscence. 02/08/17: Pt awake and alert. Complains of headaches left temporal and parietal area. No other neurologic symptoms such as nausea, vomiting, paresthesias or weakness. Patient denies any fever or chills. (Shamir Taylor) Review of Systems General: Negative for: fever, chills, insomnia Respiratory: Negative for: shortness of breath, cough, sputum Cardiovascular: Negative for: chest pain Gastrointestinal: Negative for: nausea, vomitting, diarrhea, constipation ( Shamir Taylor) Exam Results Vital Signs Date Time Temp Pulse Resp B/P Pulse Ox O2 Delivery O2 Flow Rate FiO2 02/08/17 09:07 96.6 57 20 101/67 100 02/06/17 02:51 Room Air Intake and Output 02/07/17 02/07/17 02/08/17 08:00 16:00 00:00 Intake Total 240 ml 360 ml 240 ml Balance 240 ml 360 ml 240 ml (Shamir Taylor) Physical Examination HEAD: He has about a 1 cm area of wound dehiscence in the mid frontal aspect and there is some wetness in the area and I detect a little bit of an odor of the patient denies this. There is no soft tissue swelling or any erythema although does complain of tenderness along the frontal temporal aspect to palpation. NECK: Supple with no guarding or rigidity. CHEST: Clear to auscultation bilaterally. HEART: Regular rate rhythm. Normal S1 and S2. ABDOMEN: Soft, nontender, positive bowel sounds. EXTREMITIES: No cyanosis or edema. NEUROLOGIC: He is awake and alert. Pupils are equal and reactive. Extraocular muscles are intact. Face is symmetric. Tongue is midline. Negative Babinski. Light touch sensation intact. Speech is fluent. Muscle: He moves all four extremities with 5/5 strength. (Shamir Taylor) Lab, Micro, Other Results Last Impressions Head CT 02/07/17 0000 Signed Impressions: Service Date/Time: February 02:27 - CONCLUSION: Interval resolution of soft tissue air adjacent to previous left frontal craniotomy. Stable brain appearance. Flaco Schmidt MD 02/07/17 02/07/17 02/08/17 15:00 23:00 07:00 Intake Total 360 ml 240 ml Balance 360 ml 240 ml Intake Oral 360 ml 240 ml # Voids 4 1 1 # Bowel Movements 0 (Shamir Taylor) Medical Decision Making Impression and Plan A: 27-year-old man with a remote history of left craniotomy for frontal lobe hemorrhage evacuation and now appears to have small areas of wound dehiscence without much drainage. He is on IV Ancef and cultures are growing out staph aureus. I'm concerned about the possibility of underlying osteomyelitis with bone flap necrosis and discussed debridement with craniectomy and possible bone flap removal. He informs me that his mother would like to be here for the surgery and currently she is in the [place]. Accordingly we'll continue with medical management for now and plan for debridement the next few days so his mother can travel back here. He states she is coming in at the end of the day. P: Continue with antibiotics. Continue with neuro checks. We will discuss further treatment plan when patient's mother is available. (Shamir Taylor) Attending Statement The exam, history, and the medical decision-making described in the above note were completed with the assistance of the mid-level provider. I reviewed and agree with the findings presented. I attest that I had a [id number] encounter with the patient on the same day, and personally performed and documented my assessment and findings in the medical record. Discussed the procedure of a left scalp debridement with the removal of infected bone flap decompressive craniectomy skull bone debridement. Subsequently he will need prolonged course of antibiotics and this stage to skull defect reconstruction/ cranioplasty at a later date. The risks and benefits involved the procedure were discussed along with the option of nonsurgical management with the pros and cons of each approach. He is requesting of her proceed tomorrow and states that his mother is arriving tonight to see him prior to surgery. (Toy Orellana MD) Shamir Taylor Feb 08, 2017 10:11 Toy Orellana MD Feb 08, 2017 17:25
[2017-02-08] MEDS: MORPHINE SULFATE 4 MG/ML INJ IV PUSH PRN ×2 (15:17→21:44)
--- NOTE | 2017-02-08 16:14 | HHI.PR ---
Subjective Remarks Follow up headaches. Patient states he is getting worsening headaches each day. Huy does not seem to work long. Denies any vision changes, chest pain, or sob. Objective Vitals Vital Signs Date Time Temp Pulse Resp B/P Pulse Ox O2 Delivery O2 Flow Rate FiO2 02/08/17 12:07 96.9 62 20 120/69 100 02/08/17 09:52 57 02/08/17 09:07 96.6 57 20 101/67 100 02/08/17 04:00 96.9 63 20 102/58 96 02/08/17 00:00 98.3 67 20 138/75 91 02/07/17 20:00 96.5 63 20 133/85 97 I/O 02/07/17 02/07/17 02/07/17 02/08/17 02/08/17 02/08/17 07:00 15:00 23:00 07:00 15:00 23:00 Intake Total 240 ml 360 ml 240 ml Balance 240 ml 360 ml 240 ml Intake Oral 240 ml 360 ml 240 ml # Voids 2 4 1 1 # Bowel Movements 0 Result Diagram: 02/07/17 0721 02/07/17 0721 Imaging Last Impressions Head CT 02/07/17 0000 Signed Impressions: Service Date/Time: February 02:27 - CONCLUSION: Interval resolution of soft tissue air adjacent to previous left frontal craniotomy. Stable brain appearance. Flaco Schmidt MD Objective Remarks GENERAL: This is a well-nourished, well-developed patient, in no apparent distress. SKIN: No rashes, ecchymoses or lesions. Cool and dry. HEAD: Atraumatic. Left temporal parietal area with visible 2 temporal holes in the skull. Yellowish Serous drainage noted EYES: No scleral icterus. No injection or drainage. ENT: Nose without bleeding, purulent drainage or septal hematoma. Airway patent. NECK: Trachea midline. No JVD Supple, nontender, no meningeal signs. CARDIOVASCULAR: Regular rate and rhythm without murmurs, gallops, or rubs. RESPIRATORY: Clear to auscultation. Breath sounds equal bilaterally. No wheezes , rales, or rhonchi. GASTROINTESTINAL: Abdomen soft, non-tender, nondistended. . No guarding. MUSCULOSKELETAL: Extremities without clubbing, cyanosis, or edema. No calf tenderness. NEUROLOGICAL: Awake and alert. Motor and sensory grossly within normal limits.Normal speech. Medications and IVs Current Medications Medications (Trade) Dose Ordered Sig/Lizeth Route Start Time Stop Time Status Last Admin (NS Flush) 2 ml UNSCH PRN IV FLUSH 02/06/17 02:15 (NS Flush) 2 ml BID IV FLUSH 02/06/17 09:00 02/08/17 09:53 (Narcan Inj) 0.4 mg UNSCH PRN IV 02/06/17 02:15 Levetriacetam 500 mg 500 mg BID PO 02/06/17 09:00 02/08/17 09:52 (Ancef 2 Gm Premix) 50 ml @ 100 mls/hr Q8H IV 02/06/17 18:00 02/08/17 09:52 ([place] 10-325 Mg) 1 tab Q6H PRN PO 02/07/17 23:30 02/08/17 12:19 (Morphine Inj) 2 mg Q3H PRN IV PUSH 02/08/17 15:00 02/08/17 15:17 A/P Problem List: (1) Seizure disorder ICD Code: G40.909 Status: Acute (2) Skin lesion ICD Code: L98.9 Status: Acute (3) Head ache ICD Code: R51 Status: Acute Assessment and Plan 27 y/o male with a history of craniotomy 1 1/2 years ago due to a fall and SDH, come to the ED with complaints of a headache and drainage from old craniotomy site. Patient has also been out of seizure medications for 2 months due to lack of insurance and PCP. No seizure activity in 2 months. Headache, secondary to Scalp wound, 2 temporal holes in old craniotomy wound, new one found below the first -Cultures were sent. We'll follow up. ID Following -Cont with cefazolin 1 g IV every 8 hours per ID. -Consult Neurosurgery for recommendations, surgery on Sunday -Pain management with PO [place], add IV morphine Seizure, chronic, off medications for 2 months -Seizure precautions. -Resume home meds, Keppra BID. Case management for medication assistance DVT prophylaxison SCD. Discharge Planning Surgery pending Sunday Marisa Garcia Feb 08, 2017 16:14
--- NOTE | 2017-02-08 16:33 | HHI.IDPN ---
Subjective Subjective Remarks 27 year old male, Hx TBI, had craniotomy about 2 years ago, has had problem with SZ, not taking meds, admited for evaluation of draining open wound on his craniotomy site C/S with MSSA Notes reviewed OR plans for tomorrow Has 3 areas with matted hair which I believe are areas of intermittent drainage. Most tender in the dehisced are No fever Antibiotics Ancef Lines PIV Past Medical History Reviewed Allergies: Coded Allergies: PEANUTS (Verified Allergy, Severe, throat swells, 02/05/17) Objective . Vital Signs Date Time Temp Pulse Resp B/P Pulse Ox O2 Delivery O2 Flow Rate FiO2 02/08/17 16:13 97.1 68 20 120/81 100 02/08/17 12:07 96.9 62 20 120/69 100 02/08/17 09:52 57 02/08/17 09:07 96.6 57 20 101/67 100 02/08/17 04:00 96.9 63 20 102/58 96 02/08/17 00:00 98.3 67 20 138/75 91 02/07/17 20:00 96.5 63 20 133/85 97 02/07/17 02/07/17 02/08/17 15:00 23:00 07:00 Intake Total 360 ml 240 ml Balance 360 ml 240 ml Intake Oral 360 ml 240 ml # Voids 4 1 1 # Bowel Movements 0 . Laboratory Tests Test 02/07/17 07:21 White Blood Count 7.7 TH/MM3 Red Blood Count 5.19 MIL/MM3 Hemoglobin 14.2 GM/DL Hematocrit 42.9 % Mean Corpuscular Volume 82.8 FL Mean Corpuscular Hemoglobin 27.4 PG Mean Corpuscular Hemoglobin 33.1 % Concent Red Cell Distribution Width 14.3 % Platelet Count 184 TH/MM3 Mean Platelet Volume 9.1 FL Neutrophils (%) (Auto) 56.4 % Lymphocytes (%) (Auto) 32.9 % Monocytes (%) (Auto) 8.7 % Eosinophils (%) (Auto) 1.7 % Basophils (%) (Auto) 0.3 % Neutrophils # (Auto) 4.3 TH/MM3 Lymphocytes # (Auto) 2.5 TH/MM3 Monocytes # (Auto) 0.7 TH/MM3 Eosinophils # (Auto) 0.1 TH/MM3 Basophils # (Auto) 0.0 TH/MM3 CBC Comment DIFF FINAL Differential Comment Laboratory Tests Test 02/07/17 07:21 Sodium Level 139 MEQ/L Potassium Level 4.3 MEQ/L Chloride Level 106 MEQ/L Carbon Dioxide Level 22.9 MEQ/L Anion Gap 10 MEQ/L Blood Urea Nitrogen 15 MG/DL Creatinine 0.77 MG/DL Estimat Glomerular Filtration 147 ML/MIN Rate Random Glucose 69 MG/DL Calcium Level 8.7 MG/DL Total Bilirubin 0.2 MG/DL Aspartate Amino Transf 36 U/L (AST/SGOT) Alanine Aminotransferase 54 U/L (ALT/SGPT) Alkaline Phosphatase 36 U/L Total Protein 6.9 GM/DL Albumin 3.5 GM/DL Microbiology Date/Time Procedure Status Source Growth 02/06/17 00:40 Gram Stain - Final Complete Wound Scalp 02/06/17 00:40 Wound Culture - Final Complete Staphylococcus Aureus 02/06/17 19:06 Aerobic Blood Culture - Preliminary Resulted Blood Peripheral NO GROWTH IN 2 DAYS 02/06/17 19:06 Anaerobic Blood Culture - Preliminary Resulted Blood Peripheral NO GROWTH IN 2 DAYS 02/06/17 19:09 Aerobic Blood Culture - Preliminary Resulted Blood Peripheral NO GROWTH IN 2 DAYS 02/06/17 19:09 Anaerobic Blood Culture - Preliminary Resulted Blood Peripheral NO GROWTH IN 2 DAYS Imaging Last Impressions Head CT 02/07/17 0000 Signed Impressions: Service Date/Time: February 02:27 - CONCLUSION: Interval resolution of soft tissue air adjacent to previous left frontal craniotomy. Stable brain appearance. Flaco Schmidt MD Physical Exam GENERAL: Patient is a well-nourished, well-developed patient, awake and alert , not in respiratory distress. SKIN: Warm and dry. No generalized rash, no ecchymoses and no evidence of embolic lesions. HEAD: Normocephalic. Has an open wound with crusting, tender to palpation. Anterior to this is an area with purulent drainage, not tender. No temporal wasting, or tenderness. EYES: [place] conjunctiva. No petechia or hemorrhage. Pupils equal, round and reactive to light. Extraocular movements full and intact. No scleral icterus. No injection or drainage. EARS, NOSE AND THROAT: Nose without bleeding or purulent nasal discharge. No sinus tenderness. Mucous membranes pink and moist. No oral lesions noted. No exudate. No oral thrush. NECK: Trachea midline. Supple and not tender, no meningeal signs CARDIOVASCULAR: Regular rate and rhythm. No murmurs, rubs or gallops heard RESPIRATORY: Clear to auscultation. Breath sounds equal bilaterally. No rales , wheezing or rhonchi ABDOMEN: Soft, non-tender, nondistended. Bowel sounds present and normoactive. No guarding. No rebound. No organomegaly. EXTREMITIES: No clubbing, cyanosis, or edema.No joint effusion, has good ROM. No calf tenderness. Well perfused and warm. NEUROLOGICAL: Awake and alert. Cranial nerves grossly intact. Motor grossly within normal limits. PSYCHIATRIC: Normal affect, calm and cooperative. LINE: No evidence of infection Assessment & Plan Remarks IMPRESSION Draining wound from previous craniotomy incision, has 2 draining areas, very worrisome for infected bone flap - ESR and CRP normal Previous L temporal area abscess with MSSA, ?same area involved RECOMMENDATION Follow 2 BC Continue IV Ancef OR plans noted Will follow Goldie Clayton MD Feb 08, 2017 16:33
[2017-02-08] MEDS: LACTATED RINGER'S 1000 ML INJ 1,000 ML IV SCH (18:00)
[2017-02-08] MEDS ORDERED: LACTATED RINGER'S 1000 ML IV PRN (18:45)
[2017-02-08] MEDS ORDERED: POVIDONE IODINE 5% (ANTISEPSIS KIT) 4 APPLICATIONS EACH NARE PRN (18:45)
[2017-02-08] MEDS ORDERED: CHLORHEXIDINE GLUCONATE 2 % 1 PACK (2 CLOTHS) TOPICAL PRN (18:45)
[2017-02-08] MEDS ORDERED: METOPROLOL TARTRATE 25 MG TAB PO PRN (18:45)
[2017-02-08] MEDS ORDERED: INSULIN HUMAN REGULAR 1,000 UNITS/10 ML VIAL SQ PRN (18:45)
[2017-02-08] MEDS ORDERED: SODIUM CHLORID 0.9% 500 ML IV PRN (18:45)
[2017-02-09] VITALS (8 sets, daily range): BP systolic 106–119; BP diastolic 59–67; PULSE 53–67; RESP 16–20; TEMP 96.7–98.9; O2SAT 96–100
[2017-02-09] MEDS: LACTATED RINGER'S 1000 ML INJ 1,000 ML IV SCH (01:51)
[2017-02-09] MEDS: ceFAZolin 2 GM PREMIX 50 ML IV SCH ×2 (01:51→10:00)
[2017-02-09] MEDS: SODIUM CHLORIDE 0.9% FLUSH 10 ML FLUSH IV FLUSH SCH ×2 (08:12→19:44)
[2017-02-09] MEDS: levETIRAcetam 500 MG TAB PO SCH ×2 (08:12→19:44)
[2017-02-09] MEDS ORDERED: BUPIVACAINE/EPINEPHRINE 0.5% PF 30 ML VIAL ONE (08:15)
[2017-02-09] MEDS ORDERED: THROMBIN (TOPICAL) 5,000 UNIT VIAL ONE (08:15)
[2017-02-09] MEDS ORDERED: MANNITOL INJ 50 ML ONE (08:15)
[2017-02-09] MEDS ORDERED: GELFOAM SIZE 100 ONE (08:15)
[2017-02-09] MEDS ORDERED: ceFAZolin INJ 1,000 MG VIAL ONE (08:15)
[2017-02-09] MEDS ORDERED: FUROSEMIDE 40 MG/4 ML VIAL ONE (08:15)
[2017-02-09] MEDS ORDERED: GENTAMICIN SULFATE 80 MG/2 ML VIAL ONE (08:18)
[2017-02-09 09:09] LABS: AUTOMATED NEUTROPHIL # 3.5 TH/MM3 (1.8-7.7); BASOPHIL % 0.5 % (0.0-2.0); EOSINOPHIL # 0.1 TH/MM3 (0-0.4); EOSINOPHIL % 1.8 % (0.0-4.0); HEMATOCRIT 42.5 % (39.0-51.0); HEMO FLAGS DIFF FINAL; LYMPHOCYTE # 2.2 TH/MM3 (1.0-4.8); MEAN CELL VOLUME 82.3 FL (80.0-100.0); MEAN CORPUSCULAR HEMOGLOBIN 27.5 PG (27.0-34.0); MEAN CORPUSCULAR HGB CONC 33.4 % (32.0-36.0); MONO % 8.8 % (0.0-8.0); NEUT % 54.9 % (16.0-70.0); PLATELET COUNT 182 TH/MM3 (150-450); RED BLOOD COUNT 5.16 MIL/MM3 (4.50-5.90); RED CELL DISTRIBUTION WIDTH 14.4 % (11.6-17.2); WHITE BLOOD COUNT 6.3 TH/MM3 (4.0-11.0)
[2017-02-09] MEDS ORDERED: VANCOMYCIN HCL 1000 MG VIAL ONE (09:29)
[2017-02-09] MEDS ORDERED: SODIUM CHLOR 0.9% 250 ML INJ 250 ML ONE (09:29)
[2017-02-09 09:31] LABS: BICARBONATE 26.3 MEQ/L (21.0-32.0); POTASSIUM 4.1 MEQ/L (3.5-5.1)
[2017-02-09] MEDS ORDERED: SUGAMMADEX SODIUM 200 MG/2 ML VIAL IV PUSH ONE ×2 (11:13)
[2017-02-09] MEDS ORDERED: MAGNESIUM SULFATE INJ 2 GM in SODIUM CHLORIDE 0.9% INJ 100 ML IV PRN (11:45)
[2017-02-09] MEDS ORDERED: MAGNESIUM HYDROXIDE SUSP 30 ML CUP PO PRN (11:45)
[2017-02-09] MEDS ORDERED: RESP: ALBUTEROL 2.5 MG/3 ML NEB (PRN) NEB (11:45)
[2017-02-09] MEDS ORDERED: SODIUM CHLORIDE 0.9% FLUSH 10 ML FLUSH IV FLUSH PRN (11:45)
[2017-02-09] MEDS ORDERED: LABETALOL HCL 100 MG/20 ML VIAL IV PRN (11:45)
[2017-02-09] MEDS ORDERED: POTASSIUM CHLOR 20 MEQ PREMIX 100 ML IV PRN (11:45)
[2017-02-09] MEDS ORDERED: cloNIDine HCL 0.1 MG TAB PO PRN (11:45)
[2017-02-09] MEDS ORDERED: LORazepam 2 MG/ML VIAL IVP PRN (11:45)
[2017-02-09] MEDS ORDERED: ALUMINUM/MAGNESIUM/SIMETH 30 ML CUP PO PRN (11:45)
[2017-02-09] MEDS ORDERED: ONDANSETRON HCL 4 MG/2 ML VIAL IV PRN (11:45)
[2017-02-09] MEDS ORDERED: ZOLPIDEM TARTRATE 5 MG TAB PO PRN (11:45)
[2017-02-09] MEDS ORDERED: ACETAMINOPHEN 325 MG TAB PO PRN (11:45)
[2017-02-09] MEDS ORDERED: CALCIUM GLUCONATE INJ 1 GM in SODIUM CHLORIDE 0.9% INJ 100 ML IV PRN (11:45)
[2017-02-09] MEDS ORDERED: DO NOT ADM ANY ANTICOAGULANT DRUGS PRN (11:50)
[2017-02-09] MEDS ORDERED: MIDAZOLAM HCL 2 MG/2 ML VIAL ONE (11:57)
[2017-02-09] MEDS ORDERED: fentaNYL CITRATE 250 MCG/5 ML AMP ONE (11:57)
[2017-02-09] MEDS ORDERED: *morphine SULFATE 8 MG/ML PERIprocedure ONLY ONE (12:19)
[2017-02-09] MEDS: NS + KCL 20 MEQ INJ 1,000 ML IV SCH ×2 (12:30→22:23)
[2017-02-09] MEDS ORDERED: PHENYLEPH/NS 1000 MCG/10 ML SYR IV ONE (12:51)
[2017-02-09] MEDS ORDERED: ONDANSETRON HCL 4 MG/2 ML VIAL IV PUSH ONE (12:51)
[2017-02-09] MEDS ORDERED: ePHEDrine/NS 25 MG/5 ML SYR IV ONE (12:51)
[2017-02-09] MEDS ORDERED: LACTATED RINGER'S 1000 ML INJ 1,000 ML IV ONE (12:51)
[2017-02-09] MEDS ORDERED: PROPOFOL 200 MG/20 ML AMP IV ONE (12:51)
--- NOTE | 2017-02-09 13:48 | PD.OP ---
Operative Report Date of Surgery: Feb 09, 2017 Preoperative Diagnosis: Left craniotomy bone flap and scalp dehiscence with infection/osteomyelitis Postoperative Diagnosis: Infected bone flap fragments with subgaleal and epidural infection Procedure: Left frontotemporoparietal decompressive craniectomy with removal of infected bone flap fragments and plates; left craniotomy for evacuation of epidural abscess/infected tissue Anesthesia: Gen. endotracheal by Doris Young Surgeon: Toy Orellana M.D. Employee Relation Manager(s): Nisreen Pope Operation and Findings: Following initiation of general endotracheal anesthesia patient received a gram of vancomycin intravenously along with Solitario catheter and sequential compression devices. He was placed in a supine position all pressure points adequately padded and the head secured in a horseshoe headrest and turned to the right side 30. Left side of the scalpel was then shaved the long the previous incision site with the 3 areas of scalpel of breakdown with pustular drainage noted. The largest area was in the middle of the bone flap area not adjacent to any incision site and the other 2 were and then incision line area to sit temporal and frontal. After prepping the scalp with alcohol and subsequently ChloraPrep and sterile draping, the previous incision site was infiltrated with 0.5% Marcaine with epinephrine solution and the skin incision made extending out through the galea with Xochitl clips used the scalp edges for hemostasis. The flap was retracted inferiorly with hooks and the underlying bone flap along with the cranial fixation plates were visualized. There was subgaleal small areas of pus along with necrotic soft tissue evident which were debrided. The frontal aspect of the bone flap had been resorbed and and the epidural tissue was evident along with infectious soft tissue material which was also debrided. The mini plates were removed and decompressive craniectomy removing portions of the infected bone which had not fused to and actually had partially absorber also removed until more viable soft tissue and the bone were evident at the margins. Cultures were sent for Gram stain and routine analysis. The area was then copiously irrigated with gentamicin solution. A small durotomy was also made to ensure no subdural infection and none was noted with clear fluid visualized. The dural opening was close with 4 Nurolon interrupted sutures in a watertight fashion. Then placed the 7 mm KRYSTLE drain under the galea which was exited through a separate the incision site and secured to the skin with a 2-0 nylon stitch. The midportion a scalp flap which was draining and is was also debrided and approximated with a 2-0 nylon stitch. Final scalp closure was with a 2-0 nylon interrupted stitches and a sterile dressing was then applied. He was then extubated and taken to the recovery room. There were no intraoperative complications and all sponge and needle count was correct at the end of the procedure. Estimated blood loss about 50 cc. Toy Orellana MD Feb 09, 2017 13:48
[2017-02-09] MEDS: MORPHINE SULFATE 4 MG/ML INJ IV PRN ×3 (14:51→22:22)
[2017-02-09] MEDS: ACETAMINOPHEN/HYDROcodone 325 MG/10 MG TAB PO PRN ×3 (14:52→23:07)
--- NOTE | 2017-02-09 16:00 | HHI.IDPN ---
Subjective Subjective Remarks 27 year old male, Hx TBI, had craniotomy about 2 years ago, has had problem with SZ, not taking meds, admited for evaluation of draining open wound on his craniotomy site C/S with MSSA Notes reviewed Underwent Left frontotemporoparietal decompressive craniectomy with removal of infected bone flap fragments and plates; left craniotomy for evacuation of epidural abscess/infected tissue this morning He is in [facility] Awake and alert No fever Antibiotics Ancef Lines PIV Past Medical History Reviewed Allergies: Coded Allergies: PEANUTS (Verified Allergy, Severe, throat swells, 02/05/17) Objective . Vital Signs Date Time Temp Pulse Resp B/P Pulse Ox O2 Delivery O2 Flow Rate FiO2 02/09/17 14:40 98.3 62 20 119/64 100 02/09/17 14:40 60 02/09/17 14:00 98.1 66 16 100/58 98 Room Air 02/09/17 13:30 68 16 98/54 97 Room Air 02/09/17 13:00 67 15 103/55 97 Room Air 02/09/17 12:45 65 15 105/60 100 Nasal Cannula 2 02/09/17 12:30 69 15 110/59 99 Nasal Cannula 2 02/09/17 12:15 72 15 112/66 98 Nasal Cannula 2 02/09/17 12:00 84 15 118/64 100 Nasal Cannula 3 02/09/17 11:50 98.0 96 20 123/70 99 Nasal Cannula 3 02/09/17 08:21 96.7 67 16 114/67 100 02/09/17 04:00 97.1 61 20 107/67 100 02/09/17 00:00 96.7 53 20 106/59 98 02/08/17 20:00 67 02/08/17 20:00 96.9 63 20 121/70 100 02/08/17 16:13 97.1 68 20 120/81 100 02/08/17 02/08/17 02/09/17 15:00 23:00 07:00 Intake Total 480 ml Balance 480 ml Intake Oral 480 ml # Voids 4 1 # Bowel Movements 1 0 . Laboratory Tests Test 02/09/17 07:45 White Blood Count 6.3 TH/MM3 Red Blood Count 5.16 MIL/MM3 Hemoglobin 14.2 GM/DL Hematocrit 42.5 % Mean Corpuscular Volume 82.3 FL Mean Corpuscular Hemoglobin 27.5 PG Mean Corpuscular Hemoglobin 33.4 % Concent Red Cell Distribution Width 14.4 % Platelet Count 182 TH/MM3 Mean Platelet Volume 9.3 FL Neutrophils (%) (Auto) 54.9 % Lymphocytes (%) (Auto) 34.0 % Monocytes (%) (Auto) 8.8 % Eosinophils (%) (Auto) 1.8 % Basophils (%) (Auto) 0.5 % Neutrophils # (Auto) 3.5 TH/MM3 Lymphocytes # (Auto) 2.2 TH/MM3 Monocytes # (Auto) 0.6 TH/MM3 Eosinophils # (Auto) 0.1 TH/MM3 Basophils # (Auto) 0.0 TH/MM3 CBC Comment DIFF FINAL Differential Comment Laboratory Tests Test 02/09/17 07:45 Sodium Level 136 MEQ/L Potassium Level 4.1 MEQ/L Chloride Level 102 MEQ/L Carbon Dioxide Level 26.3 MEQ/L Anion Gap 8 MEQ/L Blood Urea Nitrogen 11 MG/DL Creatinine 0.65 MG/DL Estimat Glomerular Filtration 179 ML/MIN Rate Random Glucose 83 MG/DL Calcium Level 9.1 MG/DL Microbiology Date/Time Procedure Status Source Growth 02/06/17 19:06 Aerobic Blood Culture - Preliminary Resulted Blood Peripheral NO GROWTH IN 3 DAYS 02/06/17 19:06 Anaerobic Blood Culture - Preliminary Resulted Blood Peripheral NO GROWTH IN 3 DAYS 02/06/17 19:09 Aerobic Blood Culture - Preliminary Resulted Blood Peripheral NO GROWTH IN 3 DAYS 02/06/17 19:09 Anaerobic Blood Culture - Preliminary Resulted Blood Peripheral NO GROWTH IN 3 DAYS 02/09/17 11:25 Gram Stain - Final Resulted Wound Other 02/09/17 11:25 Wound Culture Resulted Wound Other Pending 02/09/17 11:25 Acid Fast Stain Received Wound Other Pending 02/09/17 11:25 Mycobacterial Culture Received Wound Other Pending 02/09/17 11:25 Fungal Smear - Final Resulted Wound Other NO FUNGAL ELEMENTS SEEN. 02/09/17 11:25 Fungal Culture Resulted Wound Other Pending 02/09/17 11:25 Gram Stain - Final Resulted Wound Other 02/09/17 11:25 Wound Culture Resulted Wound Other Pending 02/09/17 11:25 Acid Fast Stain Received Wound Other Pending 02/09/17 11:25 Mycobacterial Culture Received Wound Other Pending 02/09/17 11:25 Fungal Smear - Final Resulted Wound Other NO FUNGAL ELEMENTS SEEN. 02/09/17 11:25 Fungal Culture Resulted Wound Other Pending Imaging Last Impressions Head CT 02/07/17 0000 Signed Impressions: Service Date/Time: , February 08, 2017 02:27 - CONCLUSION: Interval resolution of soft tissue air adjacent to previous left frontal craniotomy. Stable brain appearance. Flaco Schmidt MD Physical Exam GENERAL: awake and alert, not in respiratory distress. Has dry dressing on his head SKIN: Warm and dry. No generalized rash, no ecchymoses and no evidence of embolic lesions. HEAD: Dry intact dressing on his head EYES: [place] conjunctiva. No petechia or hemorrhage. Extraocular movements full and intact. No scleral icterus. No injection or drainage. EARS, NOSE AND THROAT: Nose without bleeding or purulent nasal discharge. Mucous membranes pink and moist. No oral lesions noted. No exudate. No oral thrush. NECK: Trachea midline. Supple and not tender, no meningeal signs CARDIOVASCULAR: Regular rate and rhythm. No murmurs, rubs or gallops heard RESPIRATORY: Clear to auscultation. Breath sounds equal bilaterally. No rales , wheezing or rhonchi ABDOMEN: Soft, non-tender, nondistended. Bowel sounds present and normoactive. No guarding. No rebound. No organomegaly. EXTREMITIES: No clubbing, cyanosis, or edema.No joint effusion, has good ROM. No calf tenderness. Well perfused and warm. NEUROLOGICAL: Awake and alert. Cranial nerves grossly intact. Motor grossly within normal limits. PSYCHIATRIC: Normal affect, calm and cooperative. LINE: No evidence of infection Assessment & Plan Remarks IMPRESSION Infected bone flap, S/P surgery today - has evidence of epidural abscess also - wound C/S preop with MSSA - more C/S from OR sent today Previous L temporal area abscess with MSSA, ?same area involved RECOMMENDATION Follow C/S Change IV Ancef to Oxacillin Will follow Will determine course of Rx once work-up completed and C/S finalized Goldie Clayton MD Feb 09, 2017 16:00
[2017-02-09] MEDS: OXACILLIN INJ 2 GM in SODIUM CHLORIDE 0.9% INJ 100 ML IV SCH ×2 (17:16→19:44)
[2017-02-09] MEDS: DOCUSATE SODIUM 100 MG CAP PO SCH (19:44)
[2017-02-09 22:16] LABS: AUTOMATED NEUTROPHIL # 7.5 TH/MM3 (1.8-7.7); BASOPHIL % 0.3 % (0.0-2.0); EOSINOPHIL % 0.1 % (0.0-4.0); HEMATOCRIT 41.4 % (39.0-51.0); HEMO FLAGS DIFF FINAL; LYMPH % 12.6 % (9.0-44.0); LYMPHOCYTE # 1.1 TH/MM3 (1.0-4.8); MEAN CELL VOLUME 82.7 FL (80.0-100.0); MEAN CORPUSCULAR HEMOGLOBIN 26.6 PG (27.0-34.0); MEAN CORPUSCULAR HGB CONC 32.2 % (32.0-36.0); MONO % 3.1 % (0.0-8.0); NEUT % 83.9 % (16.0-70.0); PLATELET COUNT 179 TH/MM3 (150-450)
--- NOTE | 2017-02-09 22:25 | HHI.PR ---
Subjective Remarks patient while in surgery today, seen later around 6 PM. Patient says that pain is under control. He denies any chest pain or shortness of breath. Denies any neurologic changes. Objective Vital Signs Date Time Temp Pulse Resp B/P Pulse Ox O2 Delivery O2 Flow Rate FiO2 02/09/17 20:00 55 02/09/17 20:00 98.6 55 19 108/61 100 02/09/17 17:00 98.9 53 20 111/65 96 02/09/17 16:00 60 02/09/17 14:40 98.3 62 20 119/64 100 02/09/17 14:40 60 02/09/17 14:00 98.1 66 16 100/58 98 Room Air 02/09/17 13:30 68 16 98/54 97 Room Air 02/09/17 13:00 67 15 103/55 97 Room Air 02/09/17 12:45 65 15 105/60 100 Nasal Cannula 2 02/09/17 12:30 69 15 110/59 99 Nasal Cannula 2 02/09/17 12:15 72 15 112/66 98 Nasal Cannula 2 02/09/17 12:00 84 15 118/64 100 Nasal Cannula 3 02/09/17 11:50 98.0 96 20 123/70 99 Nasal Cannula 3 02/09/17 08:21 96.7 67 16 114/67 100 02/09/17 04:00 97.1 61 20 107/67 100 02/09/17 00:00 96.7 53 20 106/59 98 I/O 02/08/17 02/08/17 02/08/17 02/09/17 02/09/17 02/09/17 07:00 15:00 23:00 07:00 15:00 23:00 Intake Total 480 ml 2410 ml Output Total 1490 ml Balance 480 ml 920 ml Intake Oral 480 ml 360 ml IV Total 450 ml Other 1600 ml Output Urine Total 1400 ml Drainage Total 40 ml Estimated Blood Loss 50 ml # Voids 1 4 1 # Bowel Movements 0 1 0 Result Diagram: 02/09/17 2100 02/09/17 0745 Imaging Last Impressions Head CT 02/07/17 0000 Signed Impressions: Service Date/Time: February 02:27 - CONCLUSION: Interval resolution of soft tissue air adjacent to previous left frontal craniotomy. Stable brain appearance. Flaco Schmidt MD Objective Remarks GENERAL: patient sitting up in bed. Appears comfortable. Alert. SKIN: Warm and dry. HEAD: head bandage. EYES: No scleral icterus. No injection or drainage. NECK: Supple, trachea midline. No JVD or lymphadenopathy. CARDIOVASCULAR: Regular rate and rhythm without murmurs, gallops, or rubs. RESPIRATORY: Breath sounds equal bilaterally. No accessory muscle use. GASTROINTESTINAL: Abdomen soft, non-tender, nondistended. MUSCULOSKELETAL: No cyanosis, or edema. BACK: Nontender without obvious deformity. No CVA tenderness. A/P Assessment and Plan ===== 02/09/17 Postoperative day 0 craniotomy performed for craniotomy wound dehiscence, osteomyelitis. Follow-up cultures. Continue antibiotics as per infectious disease. Appreciate assistance. 27 y/o male with a history of craniotomy 1 1/2 years ago due to a fall and SDH, come to the ED with complaints of a headache and drainage from old craniotomy site. Patient has also been out of seizure medications for 2 months due to lack of insurance and PCP. No seizure activity in 2 months. Headache, secondary to Scalp wound, 2 temporal holes in old craniotomy wound, new one found below the first -MRSA on cultures We'll follow up. ID Following -Consult Neurosurgery for recommendations, debridement 02/09 with repeat cultures -Pain management as per surgical service. Follow-up cultures Seizure disorder, chronic, off medications for 2 months -Seizure precautions. -Continue home meds, Keppra BID. Case management for medication assistance DVT prophylaxison SCD. Discharge Planning continue treatment for surgical wound dehiscence with os myelitis. -We'll need clearance from infectious disease and neurosurgery. -Physical therapy following. Appreciate his assistance. Ambrocio Durant MD Feb 09, 2017 22:25
[2017-02-09 22:26] LABS: POTASSIUM 4.2 MEQ/L (3.5-5.1)
[2017-02-10] VITALS (13 sets, daily range): BP systolic 94–129; BP diastolic 53–85; PULSE 54–81; RESP 18–22; TEMP 97.5–98.5; O2SAT 98–100
[2017-02-10] MEDS: OXACILLIN INJ 2 GM in SODIUM CHLORIDE 0.9% INJ 100 ML IV SCH ×6 (01:57→20:53)
[2017-02-10] MEDS: MORPHINE SULFATE 4 MG/ML INJ IV PRN ×2 (05:59→21:23)
[2017-02-10] MEDS: ACETAMINOPHEN/HYDROcodone 325 MG/10 MG TAB PO PRN ×4 (05:59→19:58)
[2017-02-10] MEDS: NS + KCL 20 MEQ INJ 1,000 ML IV SCH ×2 (06:27→17:19)
[2017-02-10] MEDS: SODIUM CHLORIDE 0.9% FLUSH 10 ML FLUSH IV FLUSH SCH ×2 (09:00→21:00)
--- NOTE | 2017-02-10 09:26 | HHI.PR ---
Subjective Remarks Status post surgery yesterday, follow-up for wound infection No overnight events, no fever or chills, denies any headache. No focal deficits Objective Vitals Vital Signs Date Time Temp Pulse Resp B/P Pulse Ox O2 Delivery O2 Flow Rate FiO2 02/10/17 09:09 100 21 02/10/17 06:00 59 02/10/17 04:00 98.0 74 20 94/53 98 02/10/17 04:00 74 02/10/17 02:00 64 02/10/17 00:00 97.9 81 22 115/72 99 02/10/17 00:00 81 02/09/17 22:00 53 02/09/17 20:00 55 02/09/17 20:00 98.6 55 19 108/61 100 02/09/17 17:00 98.9 53 20 111/65 96 02/09/17 16:00 60 02/09/17 14:40 98.3 62 20 119/64 100 02/09/17 14:40 60 02/09/17 14:00 98.1 66 16 100/58 98 Room Air 02/09/17 13:30 68 16 98/54 97 Room Air 02/09/17 13:00 67 15 103/55 97 Room Air 02/09/17 12:45 65 15 105/60 100 Nasal Cannula 2 02/09/17 12:30 69 15 110/59 99 Nasal Cannula 2 02/09/17 12:15 72 15 112/66 98 Nasal Cannula 2 02/09/17 12:00 84 15 118/64 100 Nasal Cannula 3 02/09/17 11:50 98.0 96 20 123/70 99 Nasal Cannula 3 I/O 02/09/17 02/09/17 02/09/17 02/10/17 02/10/17 02/10/17 07:00 15:00 23:00 07:00 15:00 23:00 Intake Total 2410 ml 1728 ml 1344 ml Output Total 1490 ml 930 ml 1170 ml Balance 920 ml 798 ml 174 ml Intake Oral 360 ml 900 ml 975 ml IV Total 450 ml 828 ml 369 ml Other 1600 ml Output Urine Total 1400 ml 900 ml 1150 ml Drainage Total 40 ml 30 ml 20 ml Estimated Blood Loss 50 ml # Voids 1 # Bowel Movements 0 0 0 Result Diagram: 02/09/17209902/09/172099 Objective Remarks Not in distress, well-nourished, looks stated age Had dressings in place PERRL, pink conjunctiva without injection, anicteric Supple neck Normal rate and regular rhythm, no murmurs gallops or rubs appreciated. Clear to auscultation and symmetric bilaterally, normal respiratory effort. Normal bowel sounds, soft, non-tender, nondistended, no guarding. Extremities without clubbing, cyanosis, or edema. No rash of generalized distribution. Skin is warm and dry. AAO x3, no cranial nerve deficits, moves all 4 extremities, no focal neurologic deficits Normal mood, appropriate affect A/P Problem List: (1) Seizure disorder ICD Code: G40.909 Status: Acute (2) Skin lesion ICD Code: L98.9 Status: Acute (3) Head ache ICD Code: R51 Status: Acute Assessment and Plan 27 y/o male with a history of craniotomy 1 1/2 years ago due to a fall and SDH, come to the ED with complaints of a headache and drainage from old craniotomy site. Patient has also been out of seizure medications for 2 months due to lack of insurance and PCP. No seizure activity in 2 months. Headache, secondary to Scalp wound, 2 temporal holes in old craniotomy wound, new one found below the first - MSSA on culture, infectious disease following, continue oxacillin. Neurosurgery following, status post 02/09/17 follow-up final cultures. Seizure disorder, chronic, off medications for 2 months -Seizure precautions. -Continue home meds, Keppra BID. Case management for medication assistance DVT prophylaxison SCD. Discharge Planning Discharged once cleared by infectious disease and neurosurgery, transfer to [facility] if okay with surgery Ashley Chance MD Feb 10, 2017 09:26
[2017-02-10] MEDS: levETIRAcetam 500 MG TAB PO SCH ×2 (09:38→20:50)
[2017-02-10] MEDS: DOCUSATE SODIUM 100 MG CAP PO SCH ×2 (09:38→21:00)
[2017-02-10] MEDS: PANTOPRAZOLE SOD 40 MG DELAYED RELEASE TAB PO SCH (09:39)
--- NOTE | 2017-02-10 12:21 | HHI.NSPN ---
(Alba Mcmahan) Note Status Status: Progress Note (Alba Mcmahan) Interval History Interval History Mr. Munguia is a 27 y/o male underwent left frontotemporoparietal decompressive craniectomy with removal of infected bone flap fragments and plates and evacuation of abscess on 02/09/17. 02/10: mother at bedside reports pt doing well, reports of mild headaches/ surgical pain. (Alba Mcmahan) Labs, Micro, & Vital Signs Results Date Time Temp Pulse Resp B/P Pulse Ox O2 Delivery O2 Flow Rate FiO2 02/10/17 12:00 60 02/10/17 10:00 54 02/10/17 09:09 100 21 02/10/17 08:00 63 02/10/17 06:00 59 02/10/17 04:00 98.0 74 20 94/53 98 02/10/17 04:00 74 02/10/17 02:00 64 02/10/17 00:00 97.9 81 22 115/72 99 02/10/17 00:00 81 02/09/17 22:00 53 02/09/17 20:00 55 02/09/17 20:00 98.6 55 19 108/61 100 02/09/17 17:00 98.9 53 20 111/65 96 02/09/17 16:00 60 02/09/17 14:40 98.3 62 20 119/64 100 02/09/17 14:40 60 02/09/17 14:00 98.1 66 16 100/58 98 Room Air 02/09/17 13:30 68 16 98/54 97 Room Air 02/09/17 13:00 67 15 103/55 97 Room Air 02/09/17 12:45 65 15 105/60 100 Nasal Cannula 2 02/09/17 12:30 69 15 110/59 99 Nasal Cannula 2 02/10/17 07:00 Intake Total 5482 ml Output Total 3590 ml Balance 1892 ml Constitutional Vital Signs Date Time Temp Pulse Resp B/P Pulse Ox O2 Delivery O2 Flow Rate FiO2 02/10/17 12:00 60 02/10/17 10:00 54 02/10/17 09:09 100 21 02/10/17 08:00 63 02/10/17 06:00 59 02/10/17 04:00 98.0 74 20 94/53 98 02/10/17 04:00 74 02/10/17 02:00 64 02/10/17 00:00 97.9 81 22 115/72 99 02/10/17 00:00 81 02/09/17 22:00 53 02/09/17 20:00 55 02/09/17 20:00 98.6 55 19 108/61 100 02/09/17 17:00 98.9 53 20 111/65 96 02/09/17 16:00 60 02/09/17 14:40 98.3 62 20 119/64 100 02/09/17 14:40 60 02/09/17 14:00 98.1 66 16 100/58 98 Room Air 02/09/17 13:30 68 16 98/54 97 Room Air 02/09/17 13:00 67 15 103/55 97 Room Air 02/09/17 12:45 65 15 105/60 100 Nasal Cannula 2 02/09/17 12:30 69 15 110/59 99 Nasal Cannula 2 02/10/17 07:00 Intake Total 5482 ml Output Total 3590 ml Balance 1892 ml (Alba Mcmahan) Review of Systems/Exam Exam Awake, appears slightly drowsy. Speech fluent. Follows commands well. Wound clean and dry. KRYSTLE drain 90 cc output overnight. CN: pupils 3 mm equal, facial motor symmetric Neck: soft, supple Motor: moves both upper and lower extremities well (Alba Mcmahan) Medications Current Medications Current Medications Medications (Trade) Dose Ordered Sig/Lizeth Route PRN Reason Start Time Stop Time Status Last Admin Dose Admin Naloxone HCl (Narcan Inj) 0.4 mg UNSCH PRN IV SEE LABEL COMMENTS 02/06/17 02:15 Levetriacetam 500 mg 500 mg BID PO 02/06/17 09:00 02/10/17 09:38 Potassium Chloride/Sodium Chloride (NS + KCl 20 Meq Inj) 1,000 ml @ 100 mls/hr Q10H IV 02/09/17 11:41 02/10/17 06:27 Sodium Chloride (NS Flush) 2 ml UNSCH PRN IV FLUSH FLUSH AFTER USING IV ACCESS 02/09/17 11:45 Sodium Chloride (NS Flush) 2 ml BID IV FLUSH 02/09/17 21:00 02/09/17 19:44 Lorazepam (Ativan Inj) 1 mg Q1H PRN IVP SEIZURES 02/09/17 11:45 Docusate Sodium (Colace) 100 mg BID PO 02/09/17 21:00 02/10/17 09:38 Magnesium Hydroxide (Milk Of Magnesia Liq) 30 ml DAILY PRN PO CONSTIPATION 02/09/17 11:45 Al Hydrox/Mg Hydrox/Simethicone (Mag-Al Plus Susp Liq) 30 ml Q6H PRN PO DYSPEPSIA 02/09/17 11:45 Pantoprazole Sodium (Protonix) 40 mg DAILY PO 02/10/17 09:00 02/10/17 09:39 Ondansetron HCl 4 mg 4 mg Q6H PRN IV NAUSEA OR VOMITING 02/09/17 11:45 Calcium Gluconate 1 gm/Sodium Chloride 110 ml @ 110 mls/hr UNSCH PRN IV SEE LABEL COMMENTS 02/09/17 11:45 Potassium Chloride 100 ml @ 50 mls/hr UNSCH PRN IV POTASSIUM LESS THAN 4 02/09/17 11:45 Magnesium Sulfate/ Sodium Chloride (Magnesium Sulfate Inj/NS Inj) 104 ml @ 100 mls/hr UNSCH PRN IV MAGNESIUM LESS THAN 2 02/09/17 11:45 Acetaminophen/ Hydrocodone Bitart ([employer] 10-325 Mg) 1 tab Q4H PRN PO PAIN SCALE 1 TO 5 02/09/17 11:45 02/09/17 18:29 Acetaminophen/ Hydrocodone Bitart ([employer] 10-325 Mg) 2 tab Q4H PRN PO PAIN SCALE 6 TO 10 02/09/17 11:45 02/10/17 11:47 Morphine Sulfate (Morphine Inj) 2 mg Q1HR PRN IV breakthrough pain> 6 02/09/17 11:45 02/10/17 05:59 Labetalol HCl (Trandate Inj) 10 mg Q1H PRN IV SYS BP GREATER THAN 170 MMHG 02/09/17 11:45 Clonidine (Catapres) 0.1 mg Q6H PRN PO SYS BP GREATER THAN 170 MMHG 02/09/17 11:45 Acetaminophen (Tylenol) 650 mg Q4H PRN PO TEMPERATURE > 101.5 F 02/09/17 11:45 Zolpidem Tartrate 5 mg 5 mg HS PRN PO INSOMNIA 02/09/17 11:45 Oxacillin Sodium/ Sodium Chloride (Prostaphlin Inj/ NS Inj) 100 ml @ 200 mls/hr Q4H IV 02/09/17 17:00 02/10/17 09:38 (Alba Mcmahan) Medical Decision Making MDM Remarks 27 y/o s/p left frontotemporoparietal decompressive craniectomy with removal of infection and abscess 02/09/17 (Alba Mcmahan) Plan Plan Remarks cont neuro checks in ISC ok OOB to chair nonchemical dvt prophyaxis with SCDs and TEDs Protonix for stress ulcer proph cont antibiotics, f/u cultures, ID following (Alba Mcmahan) Attending Statement The exam, history, and the medical decision-making described in the above note were completed with the assistance of the mid-level provider. I reviewed and agree with the findings presented. I attest that I had a [id number] encounter with the patient on the same day, and personally performed and documented my assessment and findings in the medical record. (Jimmy Lobo MD) Alba Mcmahan Feb 10, 2017 12:21 Jimmy Lobo MD Feb 10, 2017 20:23
[2017-02-11] VITALS (12 sets, daily range): BP systolic 97–130; BP diastolic 53–79; PULSE 50–71; RESP 15–21; TEMP 96.5–98.5; O2SAT 98–100
[2017-02-11] MEDS: OXACILLIN INJ 2 GM in SODIUM CHLORIDE 0.9% INJ 100 ML IV SCH ×6 (01:07→20:52)
[2017-02-11] MEDS: NS + KCL 20 MEQ INJ 1,000 ML IV SCH ×3 (04:42→16:55)
[2017-02-11] MEDS: MORPHINE SULFATE 4 MG/ML INJ IV PRN (06:59)
[2017-02-11] MEDS: PANTOPRAZOLE SOD 40 MG DELAYED RELEASE TAB PO SCH (08:24)
[2017-02-11] MEDS: levETIRAcetam 500 MG TAB PO SCH ×2 (08:24→20:51)
[2017-02-11] MEDS: ACETAMINOPHEN/HYDROcodone 325 MG/10 MG TAB PO PRN ×4 (08:25→20:52)
[2017-02-11] MEDS: DOCUSATE SODIUM 100 MG CAP PO SCH ×2 (08:26→20:53)
[2017-02-11] MEDS: SODIUM CHLORIDE 0.9% FLUSH 10 ML FLUSH IV FLUSH SCH ×2 (08:26→20:53)
--- NOTE | 2017-02-11 11:48 | HHI.NSPN ---
(Alba Mcmahan) Note Status Status: Progress Note (Alba Mcmahan) Interval History Interval History Mr. Munguia is a 27 y/o male underwent left frontotemporoparietal decompressive craniectomy with removal of infected bone flap fragments and plates and evacuation of abscess on 02/09/17. 02/10: mother at bedside reports pt doing well, reports of mild headaches/ surgical pain. 02/11: ambulating well, denies headaches. (Alba Mcmahan) Labs, Micro, & Vital Signs Results Date Time Temp Pulse Resp B/P Pulse Ox O2 Delivery O2 Flow Rate FiO2 02/11/17 10:00 68 02/11/17 08:00 97.7 56 21 121/77 100 02/11/17 08:00 54 02/11/17 06:00 54 02/11/17 04:00 54 02/11/17 04:00 98.0 54 15 107/57 98 02/11/17 02:00 54 02/11/17 00:00 98.1 50 19 97/53 99 02/11/17 00:00 56 02/10/17 22:00 58 02/10/17 20:00 70 02/10/17 20:00 98.3 70 21 129/68 98 02/10/17 18:00 62 02/10/17 16:00 68 02/10/17 16:00 98.5 68 18 127/70 100 02/10/17 14:00 78 02/10/17 12:00 97.5 60 21 120/85 100 02/10/17 12:00 60 02/11/17 07:00 Intake Total 3511 ml Output Total 2337 ml Balance 1174 ml Constitutional Vital Signs Date Time Temp Pulse Resp B/P Pulse Ox O2 Delivery O2 Flow Rate FiO2 02/11/17 10:00 68 02/11/17 08:00 97.7 56 21 121/77 100 02/11/17 08:00 54 02/11/17 06:00 54 02/11/17 04:00 54 02/11/17 04:00 98.0 54 15 107/57 98 02/11/17 02:00 54 02/11/17 00:00 98.1 50 19 97/53 99 02/11/17 00:00 56 02/10/17 22:00 58 02/10/17 20:00 70 02/10/17 20:00 98.3 70 21 129/68 98 02/10/17 18:00 62 02/10/17 16:00 68 02/10/17 16:00 98.5 68 18 127/70 100 02/10/17 14:00 78 02/10/17 12:00 97.5 60 21 120/85 100 02/10/17 12:00 60 02/11/17 07:00 Intake Total 3511 ml Output Total 2337 ml Balance 1174 ml (Alba Mcmahan) Review of Systems/Exam Exam Alert and oriented x 3. Speech fluent. Follows commands well. Wound clean and dry. Kerlix dressing in place. KRYSTLE drain in place with 37 cc output overnight. CN: pupils equal, eoms intact. facial motor symmetric. Neck: soft, supple Motor: moves both upper and lower extremities well Gait: ambulating well with PT (Alba Mcmahan) Medications Current Medications Current Medications Medications (Trade) Dose Ordered Sig/Lizeth Route PRN Reason Start Time Stop Time Status Last Admin Dose Admin Naloxone HCl (Narcan Inj) 0.4 mg UNSCH PRN IV SEE LABEL COMMENTS 02/06/17 02:15 Levetriacetam 500 mg 500 mg BID PO 02/06/17 09:00 02/11/17 08:24 Potassium Chloride/Sodium Chloride (NS + KCl 20 Meq Inj) 1,000 ml @ 100 mls/hr Q10H IV 02/09/17 11:41 02/11/17 04:42 Sodium Chloride (NS Flush) 2 ml UNSCH PRN IV FLUSH FLUSH AFTER USING IV ACCESS 02/09/17 11:45 Sodium Chloride (NS Flush) 2 ml BID IV FLUSH 02/09/17 21:00 02/10/17 21:00 Lorazepam (Ativan Inj) 1 mg Q1H PRN IVP SEIZURES 02/09/17 11:45 Docusate Sodium (Colace) 100 mg BID PO 02/09/17 21:00 02/10/17 09:38 Magnesium Hydroxide (Milk Of Magnesia Liq) 30 ml DAILY PRN PO CONSTIPATION 02/09/17 11:45 Al Hydrox/Mg Hydrox/Simethicone (Mag-Al Plus Susp Liq) 30 ml Q6H PRN PO DYSPEPSIA 02/09/17 11:45 Pantoprazole Sodium (Protonix) 40 mg DAILY PO 02/10/17 09:00 02/11/17 08:24 Ondansetron HCl 4 mg 4 mg Q6H PRN IV NAUSEA OR VOMITING 02/09/17 11:45 Calcium Gluconate 1 gm/Sodium Chloride 110 ml @ 110 mls/hr UNSCH PRN IV SEE LABEL COMMENTS 02/09/17 11:45 Potassium Chloride 100 ml @ 50 mls/hr UNSCH PRN IV POTASSIUM LESS THAN 4 02/09/17 11:45 Magnesium Sulfate/ Sodium Chloride (Magnesium Sulfate Inj/NS Inj) 104 ml @ 100 mls/hr UNSCH PRN IV MAGNESIUM LESS THAN 2 02/09/17 11:45 Acetaminophen/ Hydrocodone Bitart ([employer] 10-325 Mg) 1 tab Q4H PRN PO PAIN SCALE 1 TO 5 02/09/17 11:45 02/09/17 18:29 Acetaminophen/ Hydrocodone Bitart ([employer] 10-325 Mg) 2 tab Q4H PRN PO PAIN SCALE 6 TO 10 02/09/17 11:45 02/11/17 08:25 Morphine Sulfate (Morphine Inj) 2 mg Q1HR PRN IV breakthrough pain> 6 02/09/17 11:45 02/11/17 06:59 Labetalol HCl (Trandate Inj) 10 mg Q1H PRN IV SYS BP GREATER THAN 170 MMHG 02/09/17 11:45 Clonidine (Catapres) 0.1 mg Q6H PRN PO SYS BP GREATER THAN 170 MMHG 02/09/17 11:45 Acetaminophen (Tylenol) 650 mg Q4H PRN PO TEMPERATURE > 101.5 F 02/09/17 11:45 Zolpidem Tartrate 5 mg 5 mg HS PRN PO INSOMNIA 02/09/17 11:45 Oxacillin Sodium/ Sodium Chloride (Prostaphlin Inj/ NS Inj) 100 ml @ 200 mls/hr Q4H IV 02/09/17 17:00 02/11/17 08:24 (Alba Mcmahan) Medical Decision Making MDM Remarks 27 y/o s/p left frontotemporoparietal decompressive craniectomy with removal of infection and abscess 02/09/17, POD 2, doing well, ambulation, neuro stable cultures positive for Staph Aureus (Alba Mcmahan) Plan Plan Remarks neuro stable clear to transfer out of ISC cont therapy cont KRYSTLE draining cont nonchemical dvt prophyaxis with SCDs and TEDs Protonix for stress ulcer proph cont antibiotics, defer to ID dw mother (Alba Mcmahan) Attending Statement The exam, history, and the medical decision-making described in the above note were completed with the assistance of the mid-level provider. I reviewed and agree with the findings presented. I attest that I had a [id number] encounter with the patient on the same day, and personally performed and documented my assessment and findings in the medical record. (Jimmy Lobo MD) Alba Mcmahan Feb 11, 2017 11:48 Jimmy Lobo MD Feb 11, 2017 21:46
--- NOTE | 2017-02-11 13:22 | HHI.PR ---
Subjective Remarks Follow-up for wound infection No overnight events, denies any headache when I saw him but had a mild headache this morning improved with analgesics. No nausea or vomiting. No focal deficits. Objective Vitals Vital Signs Date Time Temp Pulse Resp B/P Pulse Ox O2 Delivery O2 Flow Rate FiO2 02/11/17 12:00 62 02/11/17 12:00 98.5 62 18 122/71 100 02/11/17 10:00 68 02/11/17 08:00 97.7 56 21 121/77 100 02/11/17 08:00 54 02/11/17 06:00 54 02/11/17 04:00 54 02/11/17 04:00 98.0 54 15 107/57 98 02/11/17 02:00 54 02/11/17 00:00 98.1 50 19 97/53 99 02/11/17 00:00 56 02/10/17 22:00 58 02/10/17 20:00 70 02/10/17 20:00 98.3 70 21 129/68 98 02/10/17 18:00 62 02/10/17 16:00 68 02/10/17 16:00 98.5 68 18 127/70 100 02/10/17 14:00 78 I/O 02/10/17 02/10/17 02/10/17 02/11/17 02/11/17 02/11/17 07:00 15:00 23:00 07:00 15:00 23:00 Intake Total 1344 ml 1156 ml 1727 ml 628 ml Output Total 1170 ml 480 ml 1095 ml 762 ml Balance 174 ml 676 ml 632 ml -134 ml Intake Oral 975 ml 720 ml 1240 ml 240 ml IV Total 369 ml 436 ml 487 ml 388 ml Output Urine Total 1150 ml 475 ml 1075 ml 750 ml Drainage Total 20 ml 5 ml 20 ml 12 ml # Bowel Movements 0 0 0 0 Result Diagram: 02/09/17209902/09/172099 Objective Remarks Not in distress Head dressings in place. PERRL, pink conjunctiva without injection, anicteric Supple neck Normal rate and regular rhythm, no murmurs gallops or rubs appreciated. Clear to auscultation and symmetric bilaterally, normal respiratory effort. Normal bowel sounds, soft, non-tender Extremities without clubbing, cyanosis, or edema. No rash of generalized distribution. AAO x3, no cranial nerve deficits, moves all 4 extremities, no focal neurologic deficits Normal mood, appropriate affect A/P Problem List: (1) Seizure disorder ICD Code: G40.909 Status: Acute (2) Skin lesion ICD Code: L98.9 Status: Acute (3) Head ache ICD Code: R51 Status: Acute Assessment and Plan 27 y/o male with a history of craniotomy 1 1/2 years ago due to a fall and SDH, come to the ED with complaints of a headache and drainage from old craniotomy site. Patient has also been out of seizure medications for 2 months due to lack of insurance and PCP. No seizure activity in 2 months. Headache, secondary to Scalp wound, 2 temporal holes in old craniotomy wound, new one found below the first - MSSA on culture, infectious disease following, continue oxacillin. Neurosurgery following, status post 02/09/17 follow-up final cultures and recommendations. Seizure disorder, chronic, off medications for 2 months -Seizure precautions. -Continue home meds, Keppra BID. Case management for medication assistance DVT prophylaxison SCD. Transfer to [facility] Out of bed Discharge Planning Discharge once cleared by infectious disease and neurosurgery Ashley Chance MD Feb 11, 2017 13:22
[2017-02-12] VITALS (8 sets, daily range): BP systolic 118–128; BP diastolic 65–76; PULSE 56–112; RESP 17–20; TEMP 97.3–98.6; O2SAT 97–100
[2017-02-12] MEDS: OXACILLIN INJ 2 GM in SODIUM CHLORIDE 0.9% INJ 100 ML IV SCH ×6 (01:38→21:29)
[2017-02-12] MEDS: NS + KCL 20 MEQ INJ 1,000 ML IV SCH (05:48)
[2017-02-12] MEDS: ACETAMINOPHEN/HYDROcodone 325 MG/10 MG TAB PO PRN ×3 (06:04→18:48)
[2017-02-12] MEDS: PANTOPRAZOLE SOD 40 MG DELAYED RELEASE TAB PO SCH (08:29)
[2017-02-12] MEDS: levETIRAcetam 500 MG TAB PO SCH ×2 (08:29→21:30)
[2017-02-12] MEDS: SODIUM CHLORIDE 0.9% FLUSH 10 ML FLUSH IV FLUSH SCH ×2 (09:00→21:31)
[2017-02-12] MEDS: DOCUSATE SODIUM 100 MG CAP PO SCH ×2 (09:00→21:00)
--- NOTE | 2017-02-12 09:45 | HHI.NSPN ---
History Chief Complaint: left headache with wound dehiscence and drainage. Interval History 27 year-old -[place] Island[place] gentleman who relates having a left craniotomy in [place] after of traumatic cerebral hemorrhage. He subsequently also suffered from recurrent seizures and was placed on Keppra, but has not been compliant with this medication mainly because he states he cannot afford it and does not have medical insurance. He relates having generalized seizures every few months with the last seizure about a month and a half ago up. He denies any falls or trauma to the head associated with these seizures. Apparently he presented to the emergency room on May 08, 2016 and was found to have a left-sided facial swelling and a draining wound in the left temporal lesion. This was subsequent to his craniotomy. He states that he was placed on some antibiotics and this eventually cleared up. The past evening he started noticing left-sided throbbing pain in the scalp area and he also noticed a lump on this area which was tender and he started picking on this and noticed there was a small portion of bone that had protruded through the skin and subsequently started to drain small amounts of serosanguineous type fluid. No clear CSF drainage was noted. He states he has intermittent headaches since last evening, although improved after this drainage. CT scan of the head obtained reveals a left craniotomy bone flap with several small plates in place. There is partial absorption of the bone flap. There is some soft tissue air bubbles noted on the left side. There is an area of encephalomalacia in the left there is a large area of encephalomalacia on the left frontal lobe relate to his previous hemorrhage. No intracranial acute abnormality is noted. The emergency room physician obtained some cultures from this left scalp drainage area and he was started on IV Ancef. Denies any fevers or chills and his white count is normal. 02/07: Has not noted much drainage from the scalp small areas of dehiscence. 02/08/17: Pt awake and alert. Complains of headaches left temporal and parietal area. No other neurologic symptoms such as nausea, vomiting, paresthesias or weakness. Patient denies any fever or chills. 02/12/17: Pt awake and alert. Complains of mild incisional discomfort. Patient denies any difficulty with speech. No changes in vision. No numbness or tingling in the face or extremities. No muscle weakness. Patient had a witnessed seizure this morning with shaking of the upper extremities bilaterally and increased muscle tone in his lower extremities with clenching of his job and producing saliva bubbles. He was given 1 mg of Ativan and has seizure resolved without any further episodes. Patient's mother is at bedside. Review of Systems General: Negative for: fever, chills, insomnia Respiratory: Negative for: shortness of breath, cough, sputum Cardiovascular: Negative for: chest pain Gastrointestinal: Negative for: nausea, vomitting, diarrhea, constipation Exam Results Vital Signs Date Time Temp Pulse Resp B/P Pulse Ox O2 Delivery O2 Flow Rate FiO2 02/12/17 08:00 98.6 112 18 128/74 98 02/10/17 09:09 21 02/09/17 14:00 Room Air 02/09/17 12:45 2 Intake and Output 02/11/17 02/11/17 02/11/17 07:59 15:59 23:59 Intake Total 628 ml 1371 ml 1100 ml Output Total 762 ml 10 ml 5 ml Balance -134 ml 1361 ml 1095 ml Physical Examination Resp: CTA bilaterally Heart: NSR no murmurs Abd: Soft positive bs Skin: Incision clean and dry. No signs of infection. KRYSTLE drain in place draining well. Muscle: Moves all 4 extremities well. Neuro: Pt awake and alert. Follows commands well. Speech clear and appropriate. Lab, Micro, Other Results Last Impressions Head CT 02/07/17 0000 Signed Impressions: Service Date/Time: February 02:27 - CONCLUSION: Interval resolution of soft tissue air adjacent to previous left frontal craniotomy. Stable brain appearance. Flaco Schmidt MD 02/11/17 02/11/17 02/12/17 14:59 22:59 06:59 Intake Total 1371 ml 1100 ml 1000 ml Output Total 10 ml 5 ml 10 ml Balance 1361 ml 1095 ml 990 ml Intake Oral 870 ml 800 ml 1000 ml IV Total 501 ml 300 ml Drainage Total 10 ml 5 ml 10 ml # Voids 3 0 2 # Bowel Movements 1 0 0 Medical Decision Making Impression and Plan A: 27-year-old man with a remote history of left craniotomy for frontal lobe hemorrhage evacuation and now appears to have small areas of wound dehiscence without much drainage. S/P left frontotemporoparietal decompressive craniectomy with removal of infected bone flap fragments and plates; left craniotomy for evacuation of epidural abscess/infected tissue. P: Continue with antibiotics. Continue with neuro checks. Seizure precautions. Shamir Taylor Feb 12, 2017 09:45
[2017-02-12] MEDS ORDERED: LIDOCAINE 2%/EPINEPHrine 1:100,000 30ML MDV INFIL ONE (11:30)
[2017-02-12] MEDS ORDERED: levETIRAcetam 500 MG TAB PO ONE (13:00)
[2017-02-12] MEDS ORDERED: levETIRAcetam 1000 MG INJ 100 ML IV ONE (13:15)
--- NOTE | 2017-02-12 13:17 | MB ---
cc: JENNIFER HUFF M.D. DATE OF CONSULTATION February 12, 2017 REASON FOR CONSULTATION He is seen in neurological consultation. It appears that he had a seizure today. HISTORY OF PRESENT ILLNESS He has been in the hospital for a week or so. He was admitted because of an infected craniotomy site. About a year and half ago he had a traumatic brain injury with craniotomy. He has had some seizures. The frequency of this is unclear. The patient usually does not feel well and seems to know when he had a seizure. His mother at bedside saw a seizure today. He was frothing out of his mouth with some mild jerking and trembling and seemed to be mildly confused after words. It appears that he had been having seizures and he ran out of the Keppra and had not been taking the medication for a year or so. He apparently does not have medical insurance and unable to afford medications. He had left frontotemporal craniectomy with removal of infected bone flap and plates and evacuation of abscess on February 09, 2017. NEUROLOGICAL EXAMINATION On exam he is alert, pleasant, oriented, somewhat anxious to go home. Ocular movements and visual pinto full. Neck is supple. He has good strength with all four limbs. No hemiparesis documented. Reflexes diminished but some reflex response present at the elbows and knees, probably absent at the ankles. Plantar responses were flexor. Position sense preserved. I did not ambulate him but, according to the patient and his mothe, he has not been having any difficulty with gait. The CT brain from this admission were reviewed. He has had a couple of studies from February 06 and February 08. There is a left frontal area of encephalomalacia. ASSESSMENT Seizures and he appears to have had a brief seizure today as usual. 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 He is currently treated for the infected craniotomy site. PLAN 1. I am going to increase his Keppra to 1000 mg twice a day and give him some extra 1000 mg Keppra IV now. 2. I will order an EEG. 3. I will follow the neurological care. Thank you for asking us to assist in his care. MD TEJAS Cerna/SSB /12:47 PM /1:13 PM
--- NOTE | 2017-02-12 14:50 | HHI.IDPN ---
Subjective Subjective Remarks 27 year old male, Hx TBI, had craniotomy about 2 years ago, has had problem with SZ, not taking meds, admited for evaluation of draining open wound on his craniotomy site C/S with MSSA Notes reviewed S/P Left frontotemporoparietal decompressive craniectomy with removal of infected bone flap fragments and plates; left craniotomy for evacuation of epidural abscess/infected tissue this morning No complaints C/S MSSA Antibiotics Oxacillin Lines PIV Past Medical History Reviewed Allergies: Coded Allergies: PEANUTS (Verified Allergy, Severe, throat swells, 02/05/17) Objective . Vital Signs Date Time Temp Pulse Resp B/P Pulse Ox O2 Delivery O2 Flow Rate FiO2 02/12/17 12:00 97.7 71 18 122/69 98 02/12/17 11:56 56 02/12/17 08:00 98.6 112 18 128/74 98 02/12/17 05:00 98.5 59 20 120/65 100 02/12/17 00:30 98.1 66 18 128/75 100 02/11/17 21:00 68 02/11/17 20:30 97.9 60 18 130/79 100 02/11/17 17:10 96.5 59 20 111/68 100 02/11/17 16:30 53 02/11/17 02/11/17 02/12/17 15:00 23:00 07:00 Intake Total 1371 ml 1100 ml 1000 ml Output Total 10 ml 5 ml 10 ml Balance 1361 ml 1095 ml 990 ml Intake Oral 870 ml 800 ml 1000 ml IV Total 501 ml 300 ml Drainage Total 10 ml 5 ml 10 ml # Voids 3 0 2 # Bowel Movements 1 0 0 Imaging Last Impressions Head CT 02/07/17 0000 Signed Impressions: Service Date/Time: February 02:27 - CONCLUSION: Interval resolution of soft tissue air adjacent to previous left frontal craniotomy. Stable brain appearance. Flaco Schmidt MD Physical Exam GENERAL: awake and alert, not in respiratory distress. Has dry dressing on his head SKIN: Warm and dry. No generalized rash, no ecchymoses and no evidence of embolic lesions. HEAD: Dry incision L side of head EYES: [place] conjunctiva. No petechia or hemorrhage. Extraocular movements full and intact. No scleral icterus. No injection or drainage. EARS, NOSE AND THROAT: Nose without bleeding or purulent nasal discharge. Mucous membranes pink and moist. No oral lesions noted. No exudate. No oral thrush. NECK: Trachea midline. Supple and not tender, no meningeal signs CARDIOVASCULAR: Regular rate and rhythm. No murmurs, rubs or gallops heard RESPIRATORY: Clear to auscultation. Breath sounds equal bilaterally. No rales , wheezing or rhonchi ABDOMEN: Soft, non-tender, nondistended. Bowel sounds present and normoactive. No guarding. No rebound. No organomegaly. EXTREMITIES: No clubbing, cyanosis, or edema.No joint effusion, has good ROM. No calf tenderness. Well perfused and warm. NEUROLOGICAL: Awake and alert. Cranial nerves grossly intact. Motor grossly within normal limits. PSYCHIATRIC: Normal affect, calm and cooperative. LINE: No evidence of infection Assessment & Plan Remarks IMPRESSION Infected bone flap, S/P surgery today - has evidence of epidural abscess also - wound C/S preop with MSSA - intraop C/S MSSA Previous L temporal area abscess with MSSA, ?same area involved RECOMMENDATION Continue IV Oxacillin PICC Consult CM to eval for home vs outpatient IV Abx - he has no insurance, but prob will qualify for patient assistance - will be able to use oxacillin in continuous pump Should be able to D/C once evaluation done Explained plan to patient and mother Goldie Clayton MD Feb 12, 2017 14:50
--- NOTE | 2017-02-12 16:07 | MG ---
cc: BROCK CHANG M.D. Lab No: [id number] Date: 02/12/2017 Age: Sex: M Race: TECHNIQUE 17-channel EEG. DESCRIPTION: The background rhythm reveals a symmetrical alpha rhythm. The frequency is 8-9 Hz, amplitude is 20-30 microvolts. During drowsiness there is mild slowing in the theta range. There is rare muscle artifact and rare eye movement artifact. Photic stimulation results in a normal driving response. Sharp activity with phase reversal is identified in the left parietal area. Hyperventilation was done with no change in background rhythm. INTERPRETATION Abnormal study with sharp activity with phase reversal in the left parietal area suggesting an underlying seizure focus. MD NEHA Kim/TLL /3:59 PM /4:05 PM
--- NOTE | 2017-02-12 18:09 | HHI.PR ---
Subjective Remarks Patient denies headache states had a seizure today denies fevers/chills stable vital signs Objective Vitals Vital Signs Date Time Temp Pulse Resp B/P Pulse Ox O2 Delivery O2 Flow Rate FiO2 02/12/17 16:00 97.3 63 17 124/76 100 02/12/17 12:00 97.7 71 18 122/69 98 02/12/17 11:56 56 02/12/17 08:00 98.6 112 18 128/74 98 02/12/17 05:00 98.5 59 20 120/65 100 02/12/17 00:30 98.1 66 18 128/75 100 02/11/17 21:00 68 02/11/17 20:30 97.9 60 18 130/79 100 I/O 02/11/17 02/11/17 02/11/17 02/12/17 02/12/17 02/12/17 07:00 15:00 23:00 07:00 15:00 23:00 Intake Total 628 ml 1371 ml 1100 ml 1000 ml 1200 ml 1502 ml Output Total 762 ml 10 ml 5 ml 10 ml Balance -134 ml 1361 ml 1095 ml 990 ml 1200 ml 1502 ml Intake Oral 240 ml 870 ml 800 ml 1000 ml 1200 ml IV Total 388 ml 501 ml 300 ml 1502 ml Output Urine Total 750 ml Drainage Total 12 ml 10 ml 5 ml 10 ml # Voids 3 0 2 4 # Bowel Movements 0 1 0 0 1 Result Diagram: 02/09/17209902/09/17 2100 Imaging Last Impressions Head CT 02/07/17 0000 Signed Impressions: Service Date/Time: February 02:27 - CONCLUSION: Interval resolution of soft tissue air adjacent to previous left frontal craniotomy. Stable brain appearance. Flaco Schmidt MD Objective Remarks GENERAL: NAD SKIN: Warm and dry. HEAD: There is the presence of a scalp scar which does not have any discharge and seems to be healing well. EYES: Pupils equal and round. No scleral icterus. No injection or drainage. ENT: No nasal bleeding or discharge. Mucous membranes pink and moist. NECK: Trachea midline. No JVD. CARDIOVASCULAR: Regular rate and rhythm. RESPIRATORY: No accessory muscle use. Clear to auscultation. Breath sounds equal bilaterally. GASTROINTESTINAL: Abdomen soft, non-tender, nondistended. Hepatic and splenic margins not palpable. MUSCULOSKELETAL: Extremities without clubbing, cyanosis, or edema. No obvious deformities. NEUROLOGICAL: Awake and alert. No obvious cranial nerve deficits. Motor grossly within normal limits. Five out of 5 muscle strength in the arms and legs. Normal speech. PSYCHIATRIC: Appropriate mood and affect; insight and judgment normal. Procedures sp left scalp debridement with bone flap removal and craniectomy with epidural abscess evacuation Medications and IVs Current Medications Medications (Trade) Dose Ordered Sig/Lizeth Route Start Time Stop Time Status Last Admin (Narcan Inj) 0.4 mg UNSCH PRN IV 02/06/17 02:15 (NS Flush) 2 ml UNSCH PRN IV FLUSH 02/09/17 11:45 (NS Flush) 2 ml BID IV FLUSH 02/09/17 21:00 02/12/17 21:31 (Ativan Inj) 1 mg Q1H PRN IVP 02/09/17 11:45 02/12/17 08:15 (Colace) 100 mg BID PO 02/09/17 21:00 02/10/17 09:38 (Milk Of Magnesia Liq) 30 ml DAILY PRN PO 02/09/17 11:45 (Mag-Al Plus Susp Liq) 30 ml Q6H PRN PO 02/09/17 11:45 (Protonix) 40 mg DAILY PO 02/10/17 09:00 02/12/17 08:29 Ondansetron HCl 4 mg 4 mg Q6H PRN IV 02/09/17 11:45 Calcium Gluconate 1 gm/Sodium Chloride 110 ml @ 110 mls/hr UNSCH PRN IV 02/09/17 11:45 Potassium Chloride 100 ml @ 50 mls/hr UNSCH PRN IV 02/09/17 11:45 (Magnesium Sulfate Inj/NS Inj) 104 ml @ 100 mls/hr UNSCH PRN IV 02/09/17 11:45 ([place] 10-325 Mg) 1 tab Q4H PRN PO 02/09/17 11:45 02/09/17 18:29 ([place] 10-325 Mg) 2 tab Q4H PRN PO 02/09/17 11:45 02/12/17 18:48 (Morphine Inj) 2 mg Q1HR PRN IV 02/09/17 11:45 02/11/17 06:59 (Trandate Inj) 10 mg Q1H PRN IV 02/09/17 11:45 (Catapres) 0.1 mg Q6H PRN PO 02/09/17 11:45 (Tylenol) 650 mg Q4H PRN PO 02/09/17 11:45 Zolpidem Tartrate 5 mg 5 mg HS PRN PO 02/09/17 11:45 (Prostaphlin Inj/ NS Inj) 100 ml @ 200 mls/hr Q4H IV 02/09/17 17:00 02/12/17 21:29 (Keppra) 1,000 mg BID PO 02/12/17 21:00 02/12/17 21:30 A/P Problem List: (1) Seizure disorder ICD Code: G40.909 Status: Acute (2) Skin lesion ICD Code: L98.9 Status: Acute (3) Head ache ICD Code: R51 Status: Acute Assessment and Plan 27 y/o male with a history of craniotomy 1 1/2 years ago due to a fall and SDH, come to the ED with complaints of a headache and drainage from old craniotomy site. Patient has also been out of seizure medications for 2 months due to lack of insurance and PCP. No seizure activity in 2 months. Headache, secondary to Scalp wound, 2 temporal holes in old craniotomy wound, new one found below the first - MSSA on culture, infectious disease following, continue oxacillin. Neurosurgery following, status post 02/09/17 follow-up final cultures and recommendations. - Headache resolved. Seizure disorder, chronic, off medications for 2 months -Seizure precautions. - (+) EEG, fu neurology recommendations. Had seizure today. - Neurology consulted. Sp 1000 mg IV keppra and dose increased to 1000 mg po BID. DVT prophylaxison SCD. Discharge Planning Patient still having seizures. Pending neurology, ID and neurosurgery clearance Daryl Escobar MD Feb 12, 2017 18:09
[2017-02-13 00:30] VITALS: BP 123/71; PULSE 82; RESP 20; TEMP 97.2; O2SAT 99
[2017-02-13] MEDS: OXACILLIN INJ 2 GM in SODIUM CHLORIDE 0.9% INJ 100 ML IV SCH ×6 (00:52→19:33)
[2017-02-13] MEDS: ACETAMINOPHEN/HYDROcodone 325 MG/10 MG TAB PO PRN ×5 (00:56→23:07)
[2017-02-13 04:30] VITALS: BP 107/66; PULSE 73; RESP 18; TEMP 97.3; O2SAT 100
--- NOTE | 2017-02-13 08:23 | HHI.PR ---
Review/Management Daily Summary no seizure recurrence neuro bañuelos can go home on keppra 1000 mg bid and see me in 3 weeks Subjective Subjective Comments No acute events reported No headache No chest pain No dyspnea Active Medications Current Medications Medications (Trade) Dose Ordered Sig/Lizeth Route Start Time Stop Time Status Last Admin (Narcan Inj) 0.4 mg UNSCH PRN IV 02/06/17 02:15 (NS Flush) 2 ml UNSCH PRN IV FLUSH 02/09/17 11:45 (NS Flush) 2 ml BID IV FLUSH 02/09/17 21:00 02/12/17 21:31 (Ativan Inj) 1 mg Q1H PRN IVP 02/09/17 11:45 02/12/17 08:15 (Colace) 100 mg BID PO 02/09/17 21:00 02/10/17 09:38 (Milk Of Magnesia Liq) 30 ml DAILY PRN PO 02/09/17 11:45 (Mag-Al Plus Susp Liq) 30 ml Q6H PRN PO 02/09/17 11:45 (Protonix) 40 mg DAILY PO 02/10/17 09:00 02/12/17 08:29 Ondansetron HCl 4 mg 4 mg Q6H PRN IV 02/09/17 11:45 Calcium Gluconate 1 gm/Sodium Chloride 110 ml @ 110 mls/hr UNSCH PRN IV 02/09/17 11:45 Potassium Chloride 100 ml @ 50 mls/hr UNSCH PRN IV 02/09/17 11:45 (Magnesium Sulfate Inj/NS Inj) 104 ml @ 100 mls/hr UNSCH PRN IV 02/09/17 11:45 ([place] 10-325 Mg) 1 tab Q4H PRN PO 02/09/17 11:45 02/09/17 18:29 ([place] 10-325 Mg) 2 tab Q4H PRN PO 02/09/17 11:45 02/13/17 00:56 (Morphine Inj) 2 mg Q1HR PRN IV 02/09/17 11:45 02/11/17 06:59 (Trandate Inj) 10 mg Q1H PRN IV 02/09/17 11:45 (Catapres) 0.1 mg Q6H PRN PO 02/09/17 11:45 (Tylenol) 650 mg Q4H PRN PO 02/09/17 11:45 Zolpidem Tartrate 5 mg 5 mg HS PRN PO 02/09/17 11:45 (Prostaphlin Inj/ NS Inj) 100 ml @ 200 mls/hr Q4H IV 02/09/17 17:00 02/13/17 05:03 (Keppra) 1,000 mg BID PO 02/12/17 21:00 02/12/17 21:30 Allergies Allergies Coded Allergies PEANUTS (Verified Allergy, Severe, throat swells, 02/05/17) Exam I&O / VS 02/12/17 02/12/17 02/13/17 15:00 23:00 07:00 Intake Total 1200 ml 2702 ml 600 ml Balance 1200 ml 2702 ml 600 ml Intake Oral 1200 ml 1200 ml 600 ml IV Total 1502 ml # Voids 4 2 3 # Bowel Movements 1 0 0 Vital Signs Date Time Temp Pulse Resp B/P Pulse Ox O2 Delivery O2 Flow Rate FiO2 02/13/17 04:30 97.3 73 18 107/66 100 02/13/17 00:30 97.2 82 20 123/71 99 02/12/17 21:00 76 02/12/17 20:00 97.5 69 20 118/73 97 02/12/17 16:00 97.3 63 17 124/76 100 02/12/17 12:00 97.7 71 18 122/69 98 02/12/17 11:56 56 Objective Micro and Labs Date/Time Procedure Status Source Growth 02/09/17 11:25 Gram Stain - Final Complete Wound Other 02/09/17 11:25 Wound Culture - Final Complete Staphylococcus Aureus 02/09/17 11:25 Fungal Smear - Final Resulted Wound Other NO FUNGAL ELEMENTS SEEN. 02/09/17 11:25 Fungal Culture Resulted Wound Other Pending 02/09/17 11:25 Acid Fast Stain - Final Resulted Wound Other NO ACID FAST BACILLI SEEN 02/09/17 11:25 Mycobacterial Culture Resulted Wound Other Pending Ismael Ku MD Feb 13, 2017 08:23
[2017-02-13 08:30] VITALS: BP 125/82; PULSE 64; RESP 20; TEMP 97; O2SAT 100
[2017-02-13] MEDS: DOCUSATE SODIUM 100 MG CAP PO SCH ×2 (08:52→19:34)
[2017-02-13] MEDS: PANTOPRAZOLE SOD 40 MG DELAYED RELEASE TAB PO SCH (08:53)
[2017-02-13] MEDS: levETIRAcetam 500 MG TAB PO SCH ×2 (08:53→19:34)
[2017-02-13] MEDS: SODIUM CHLORIDE 0.9% FLUSH 10 ML FLUSH IV FLUSH SCH ×2 (08:54→19:33)
--- NOTE | 2017-02-13 09:05 | HHI.NSPN ---
History Chief Complaint: left headache with wound dehiscence and drainage. Interval History 27 year-old -[place] gentleman who relates having a left craniotomy in [place] after of traumatic cerebral hemorrhage. He subsequently also suffered from recurrent seizures and was placed on Keppra, but has not been compliant with this medication mainly because he states he cannot afford it and does not have medical insurance. He relates having generalized seizures every few months with the last seizure about a month and a half ago up. He denies any falls or trauma to the head associated with these seizures. Apparently he presented to the emergency room on May 08, 2016 and was found to have a left-sided facial swelling and a draining wound in the left temporal lesion. This was subsequent to his craniotomy. He states that he was placed on some antibiotics and this eventually cleared up. The past evening he started noticing left-sided throbbing pain in the scalp area and he also noticed a lump on this area which was tender and he started picking on this and noticed there was a small portion of bone that had protruded through the skin and subsequently started to drain small amounts of serosanguineous type fluid. No clear CSF drainage was noted. He states he has intermittent headaches since last evening, although improved after this drainage. CT scan of the head obtained reveals a left craniotomy bone flap with several small plates in place. There is partial absorption of the bone flap. There is some soft tissue air bubbles noted on the left side. There is an area of encephalomalacia in the left there is a large area of encephalomalacia on the left frontal lobe relate to his previous hemorrhage. No intracranial acute abnormality is noted. The emergency room physician obtained some cultures from this left scalp drainage area and he was started on IV Ancef. Denies any fevers or chills and his white count is normal. 02/07: Has not noted much drainage from the scalp small areas of dehiscence. 02/08/17: Pt awake and alert. Complains of headaches left temporal and parietal area. No other neurologic symptoms such as nausea, vomiting, paresthesias or weakness. Patient denies any fever or chills. 02/12/17: Pt awake and alert. Complains of mild incisional discomfort. Patient denies any difficulty with speech. No changes in vision. No numbness or tingling in the face or extremities. No muscle weakness. Patient had a witnessed seizure this morning with shaking of the upper extremities bilaterally and increased muscle tone in his lower extremities with clenching of his job and producing saliva bubbles. He was given 1 mg of Ativan and has seizure resolved without any further episodes. Patient's mother is at bedside. 02/13/17: Pt awake and alert. Complains of mild left sided headache, better than preop. No nausea vomiting, paresthesias or weakness. Review of Systems General: Negative for: fever, chills, insomnia Respiratory: Negative for: shortness of breath, cough, sputum Cardiovascular: Negative for: chest pain Gastrointestinal: Negative for: nausea, vomitting, diarrhea, constipation Exam Results Vital Signs Date Time Temp Pulse Resp B/P Pulse Ox O2 Delivery O2 Flow Rate FiO2 02/13/17 04:30 97.3 73 18 107/66 100 02/10/17 09:09 21 02/09/17 14:00 Room Air 02/09/17 12:45 2 Intake and Output 02/12/17 02/12/17 02/13/17 08:00 16:00 00:00 Intake Total 1000 ml 1200 ml 2702 ml Output Total 10 ml Balance 990 ml 1200 ml 2702 ml Physical Examination Resp: CTA bilaterally Heart: NSR no murmurs Abd: Soft positive bs Skin: Incision clean and dry. No signs of infection. Muscle: Moves all 4 extremities well. Neuro: Pt awake and alert. Follows commands well. Speech clear and appropriate. Lab, Micro, Other Results Last Impressions Head CT 02/07/17 0000 Signed Impressions: Service Date/Time: February 02:27 - CONCLUSION: Interval resolution of soft tissue air adjacent to previous left frontal craniotomy. Stable brain appearance. Flaco Schmidt MD 02/12/17 02/12/17 02/13/17 15:00 23:00 07:00 Intake Total 1200 ml 2702 ml 600 ml Balance 1200 ml 2702 ml 600 ml Intake Oral 1200 ml 1200 ml 600 ml IV Total 1502 ml # Voids 4 2 3 # Bowel Movements 1 0 0 Medical Decision Making Impression and Plan A: 27-year-old man with a remote history of left craniotomy for frontal lobe hemorrhage evacuation and now appears to have small areas of wound dehiscence without much drainage. S/P left frontotemporoparietal decompressive craniectomy with removal of infected bone flap fragments and plates; left craniotomy for evacuation of epidural abscess/infected tissue. P: Continue with antibiotics. Continue with neuro checks. Seizure precautions. Shamir Taylor Feb 13, 2017 09:05
[2017-02-13 09:33] VITALS: PULSE 62
--- NOTE | 2017-02-13 13:03 | HHI.FF ---
Infusion Therapy Location of Infusion Therapy: Ambulatory Infusion Therapy Order Patient Information Patient Weight 99 kg Diagnosis: Diagnosis MSSA osteomyelitis bone flap, and epidural abscess Coded Allergies: PEANUTS (Verified Allergy, Severe, throat swells, 02/05/17) Administer Medication Oxacillin 12 grams IV Continuous with pump Oxacillin 12 gm IV continuous infusion daily Stop Treatment: Mar 22, 2017 Additional Information Venous access: PICC Line Additional Instructions [x] Peripheral flush and dressing changes per protocol [x] Implanted port and central center line cutter operator: * Implanted port: 10 ml Normal Saline followed by 5 ml Heparin 100 units/ml Heparin flush after each use and monthly to maintain. [] May leave port accessed during therapy. [] May leave peripheral site accessed for duration of therapy. [x] If patient has SOB or respiratory distress, check oxygen saturation. If less than 90% or clinical signs of respiratory distress, administer oxygen at 2 L/min. via nasal cannula and notify physician. [x] Anaphylaxis/Reaction orders: * Stop infusion. * Keep IV line open with saline flush. * Notify physician. * Monitor vital signs every 15 minutes until symptoms resolve. * Check Oxygen saturation; Oxygen at 2 L/min. via nasal cannula if less than 90% or clinical signs of respiratory distress. * Administer diphenhydramine (Benadryl) 25 mg IV STAT, (unless patient has received as pre-med). May repeat once, if necessary. * Solu-Cortef 250 mg IVP over 30-60 seconds, use 100 mg vials for each dissolution. * Epinephrine (1mg/1 ml) 0.3 mg subcutaneously or IVP now with any signs of respiratory distress. * Check with physician for new additional pre-med orders if patient is re- challenged or re-treated. [x] May remove PICC line when treatment complete, after confirming with Physician. [x] If the patient is admitted to the hospital, the ED, or transferred via [facility] , complete transfer form including medication reconciliation order sheet. Laboratory Tests Weekly Labs: CBC w/diff, Creatinine, LFT's (Hepatic function test) (labs every Sunday) Goldie Clayton MD Feb 13, 2017 13:03
[2017-02-13] MEDS ORDERED: EPIN1INJ21 IV PUSH (13:07)
[2017-02-13] MEDS ORDERED: EPIN1INJ21 SQ (13:07)
[2017-02-13] MEDS ORDERED: SOLU250I IV PUSH (13:07)
[2017-02-13] MEDS ORDERED: [UNRECOGNIZED DRUG - CODE] IV (13:07)
--- NOTE | 2017-02-13 13:10 | HHI.IDPN ---
Subjective Subjective Remarks 27 year old male, Hx TBI, had craniotomy about 2 years ago, has had problem with SZ, not taking meds, admited for evaluation of draining open wound on his craniotomy site C/S with MSSA Notes reviewed S/P Left frontotemporoparietal decompressive craniectomy with removal of infected bone flap fragments and plates; left craniotomy for evacuation of epidural abscess/infected tissue No complaints C/S MSSA PICC placed Spoke with CM - patient can have Rx at infusion clinic Antibiotics Oxacillin Lines PIV Past Medical History Reviewed Allergies: Coded Allergies: PEANUTS (Verified Allergy, Severe, throat swells, 02/05/17) Objective . Vital Signs Date Time Temp Pulse Resp B/P Pulse Ox O2 Delivery O2 Flow Rate FiO2 02/13/17 09:33 62 02/13/17 08:30 97.0 64 20 125/82 100 02/13/17 04:30 97.3 73 18 107/66 100 02/13/17 00:30 97.2 82 20 123/71 99 02/12/17 21:00 76 02/12/17 20:00 97.5 69 20 118/73 97 02/12/17 16:00 97.3 63 17 124/76 100 02/12/17 02/12/17 02/13/17 15:00 23:00 07:00 Intake Total 1200 ml 2702 ml 600 ml Balance 1200 ml 2702 ml 600 ml Intake Oral 1200 ml 1200 ml 600 ml IV Total 1502 ml # Voids 4 2 3 # Bowel Movements 1 0 0 Imaging Last Impressions Head CT 02/07/17 0000 Signed Impressions: Service Date/Time: February 02:27 - CONCLUSION: Interval resolution of soft tissue air adjacent to previous left frontal craniotomy. Stable brain appearance. Flaco Schmidt MD Physical Exam GENERAL: awake and alert, not in respiratory distress. Has dry dressing on his head SKIN: Warm and dry. No generalized rash, no ecchymoses and no evidence of embolic lesions. HEAD: Dry incision L side of head EYES: [place] conjunctiva. No petechia or hemorrhage. Extraocular movements full and intact. No scleral icterus. No injection or drainage. EARS, NOSE AND THROAT: Nose without bleeding or purulent nasal discharge. Mucous membranes pink and moist. No oral lesions noted. No exudate. No oral thrush. NECK: Trachea midline. Supple and not tender, no meningeal signs CARDIOVASCULAR: Regular rate and rhythm. No murmurs, rubs or gallops heard RESPIRATORY: Clear to auscultation. Breath sounds equal bilaterally. No rales , wheezing or rhonchi ABDOMEN: Soft, non-tender, nondistended. Bowel sounds present and normoactive. No guarding. No rebound. No organomegaly. EXTREMITIES: No clubbing, cyanosis, or edema.No joint effusion, has good ROM. No calf tenderness. Well perfused and warm. NEUROLOGICAL: Awake and alert. Cranial nerves grossly intact. Motor grossly within normal limits. PSYCHIATRIC: Normal affect, calm and cooperative. LINE: No evidence of infection Assessment & Plan Remarks IMPRESSION Infected bone flap, S/P surgery today - has evidence of epidural abscess also - wound C/S preop with MSSA - intraop C/S MSSA Previous L temporal area abscess with MSSA, ?same area involved RECOMMENDATION Continue IV Oxacillin - give until March 22 I filled out Abx form [facility] to arrange for IV Abx in infusion clinic He is ready to D/C after getting his IV Abx at 4 or 5 pm Explained plan to patient and mother Spoke with Goldie Baxter MD Feb 13, 2017 13:10
--- NOTE | 2017-02-13 13:12 | RADRPT ---
EXAM DATE/TIME: 02/13/2017 12:47 [facility] COMPARISON: SHOULDER LEFT COMPLETE (>2VWS), July 13, 2016, 17:39. INDICATIONS : PICC line placement. MEDICAL HISTORY : seizures, subdural hematoma SURGICAL HISTORY : Craniotomy. ENCOUNTER: Initial ACUITY: 1 day PAIN SCORE: 0/10 LOCATION: Right chest FINDINGS: The PICC is in excellent position. The heart is normal size. The lungs are clear. The osseous structures demonstrate a rotatory scoliosis and degenerative changes in the left shoulder . CONCLUSION: 1. PICC in good position. Catheter tip overlies the superior vena cava Arnie Palomares MD on February 13, 2017 at 13:10 Board Certified Radiologist. This report was verified electronically.
[2017-02-13] MEDS ORDERED: SODIUM CHLORIDE 0.9% FLUSH 10 ML FLUSH IV FLUSH PRN (13:15)
[2017-02-13 16:37] VITALS: BP 134/77; PULSE 62; RESP 21; TEMP 96.9; O2SAT 100
--- NOTE | 2017-02-13 19:27 | HHI.PR ---
Subjective Remarks No further seizures Denies headache, fevers or chills Stable vital signs Objective Vitals Vital Signs Date Time Temp Pulse Resp B/P Pulse Ox O2 Delivery O2 Flow Rate FiO2 02/13/17 16:37 96.9 62 21 134/77 100 02/13/17 09:33 62 02/13/17 08:30 97.0 64 20 125/82 100 02/13/17 04:30 97.3 73 18 107/66 100 02/13/17 00:30 97.2 82 20 123/71 99 02/12/17 21:00 76 02/12/17 20:00 97.5 69 20 118/73 97 I/O 02/12/17 02/12/17 02/12/17 02/13/17 02/13/17 02/13/17 07:00 15:00 23:00 07:00 15:00 23:00 Intake Total 1000 ml 1200 ml 2702 ml 600 ml 2648 ml Output Total 10 ml Balance 990 ml 1200 ml 2702 ml 600 ml 2648 ml Intake Oral 1000 ml 1200 ml 1200 ml 600 ml 720 ml IV Total 1502 ml 1928 ml Drainage Total 10 ml # Voids 2 4 2 3 5 # Bowel Movements 0 1 0 0 Result Diagram: 02/09/17 2100 02/09/17 2100 Imaging Last Impressions Chest X-Ray 02/13/17 0000 Signed Impressions: Service Date/Time: Monday, February 13, 2017 12:47 - CONCLUSION: 1. PICC in good position. Catheter tip overlies the superior vena cava Arnie Palomares MD Head CT 02/07/17 0000 Signed Impressions: Service Date/Time: February 02:27 - CONCLUSION: Interval resolution of soft tissue air adjacent to previous left frontal craniotomy. Stable brain appearance. Flaco Schmidt MD Objective Remarks GENERAL: NAD SKIN: Warm and dry. HEAD: There is the presence of a scalp scar which does not have any discharge and seems to be healing well. EYES: Pupils equal and round. No scleral icterus. No injection or drainage. ENT: No nasal bleeding or discharge. Mucous membranes pink and moist. NECK: Trachea midline. No JVD. CARDIOVASCULAR: Regular rate and rhythm. RESPIRATORY: No accessory muscle use. Clear to auscultation. Breath sounds equal bilaterally. GASTROINTESTINAL: Abdomen soft, non-tender, nondistended. Hepatic and splenic margins not palpable. MUSCULOSKELETAL: Extremities without clubbing, cyanosis, or edema. No obvious deformities. NEUROLOGICAL: Awake and alert. No obvious cranial nerve deficits. Motor grossly within normal limits. Five out of 5 muscle strength in the arms and legs. Normal speech. PSYCHIATRIC: Appropriate mood and affect; insight and judgment normal. Procedures sp left scalp debridement with bone flap removal and craniectomy with epidural abscess evacuation Medications and IVs Current Medications Medications (Trade) Dose Ordered Sig/Lizeth Route Start Time Stop Time Status Last Admin (Narcan Inj) 0.4 mg UNSCH PRN IV 02/06/17 02:15 (NS Flush) 2 ml UNSCH PRN IV FLUSH 02/09/17 11:45 (NS Flush) 2 ml BID IV FLUSH 02/09/17 21:00 02/13/17 08:54 (Ativan Inj) 1 mg Q1H PRN IVP 02/09/17 11:45 02/12/17 08:15 (Colace) 100 mg BID PO 02/09/17 21:00 02/13/17 08:52 (Milk Of Magnesia Liq) 30 ml DAILY PRN PO 02/09/17 11:45 (Mag-Al Plus Susp Liq) 30 ml Q6H PRN PO 02/09/17 11:45 (Protonix) 40 mg DAILY PO 02/10/17 09:00 02/13/17 08:53 Ondansetron HCl 4 mg 4 mg Q6H PRN IV 02/09/17 11:45 Calcium Gluconate 1 gm/Sodium Chloride 110 ml @ 110 mls/hr UNSCH PRN IV 02/09/17 11:45 Potassium Chloride 100 ml @ 50 mls/hr UNSCH PRN IV 02/09/17 11:45 (Magnesium Sulfate Inj/NS Inj) 104 ml @ 100 mls/hr UNSCH PRN IV 02/09/17 11:45 ([place] 10-325 Mg) 1 tab Q4H PRN PO 02/09/17 11:45 02/09/17 18:29 ([place] 10-325 Mg) 2 tab Q4H PRN PO 02/09/17 11:45 02/13/17 18:11 (Morphine Inj) 2 mg Q1HR PRN IV 02/09/17 11:45 02/11/17 06:59 (Trandate Inj) 10 mg Q1H PRN IV 02/09/17 11:45 (Catapres) 0.1 mg Q6H PRN PO 02/09/17 11:45 (Tylenol) 650 mg Q4H PRN PO 02/09/17 11:45 Zolpidem Tartrate 5 mg 5 mg HS PRN PO 02/09/17 11:45 (Prostaphlin Inj/ NS Inj) 100 ml @ 200 mls/hr Q4H IV 02/09/17 17:00 02/13/17 17:28 (Keppra) 1,000 mg BID PO 02/12/17 21:00 02/13/17 08:53 (NS Flush) See Protocol DAILY IV FLUSH 02/14/17 09:00 (NS Flush) See Protocol UNSCH PRN IV FLUSH 02/13/17 13:15 (Heparin Central Flush) See Protocol DAILY IV FLUSH 02/14/17 09:00 (Heparin Central Flush) See Protocol UNSCH PRN IV FLUSH 02/13/17 13:15 (NS Flush) UNSCH PRN IV FLUSH 02/13/17 13:15 Urinary Catheter: No Vascular Central Line Catheter: No A/P Problem List: (1) Seizure disorder ICD Code: G40.909 Status: Acute (2) Skin lesion ICD Code: L98.9 Status: Acute (3) Head ache ICD Code: R51 Status: Acute (4) Infected bone flap ICD Code: T84.7XXA Status: Acute Assessment and Plan 27 y/o male with a history of craniotomy 1 1/2 years ago due to a fall and SDH, come to the ED with complaints of a headache and drainage from old craniotomy site. Patient has also been out of seizure medications for 2 months due to lack of insurance and PCP. No seizure activity in 2 months. Headache, secondary to Scalp wound, 2 temporal holes in old craniotomy wound, new one found below the first - MSSA on culture, infectious disease following, continue oxacillin. Neurosurgery following, status post 02/09/17 follow-up final cultures and recommendations. - Headache resolved. -ID clear patient to be discharged home on IV oxacillin once IV infusion as an outpatient is set up. Case was discussed with case advocate, she suspects bump to be ready tomorrow and patient will have to go to the infusion clinic. Stop dtae for antobiotic is 03/12. -PICC line placed today. -Neurosurgery cleared patient for discharge. Seizure disorder, chronic, off medications for 2 months -Seizure precautions. - (+) EEG, fu neurology recommendations. Had seizure today. - Neurology consulted. Sp 1000 mg IV keppra and dose increased to 1000 mg po BID on 02/13 - Neurosurgery cleared patient for discharge on Keppra 1000 mg by mouth twice a day. DVT prophylaxison SCD. Discharge Planning Will DC in am once antibiotic pump is set up. Daryl Escobar MD Feb 13, 2017 19:27
[2017-02-13 20:00] VITALS: BP 112/62; PULSE 57; RESP 20; TEMP 96.9; O2SAT 95
[2017-02-14] VITALS: BP 123/78; PULSE 61; RESP 20; TEMP 96.8; O2SAT 100
[2017-02-14] MEDS ORDERED: LEVE500 PO (00:19)
--- NOTE | 2017-02-14 00:19 | HHI.DCPOC ---
Discharge Care Plan Diagnosis: (1) Seizure disorder (2) Infected bone flap Goals to Promote Your Health * To prevent worsening of your condition and complications * To maintain your health at the optimal level Directions to Meet Your Goals Take your medications as prescribed Follow your dietary instruction Follow activity as directed Keep your appointments as scheduled Take your immunizations and boosters as scheduled If your symptoms worsen call your PCP, if no PCP go to Urgent Care Center or Emergency Room Smoking is Dangerous to Your Health. Avoid second hand smoke Call the 24-hour hour crisis hotline for domestic abuse at Daryl Escobar MD Feb 14, 2017 00:19
--- NOTE | 2017-02-14 00:25 | HHI.DS ---
Discharge Summary Admission Date February 06, 2017 at 10:58 Discharge Date: Feb 14, 2017 Admitting Diagnosis Skull defect with scalp wound s/p remote craniotomy (1) Seizure disorder ICD Code: G40.909 Diagnosis: Principal (2) Skin lesion ICD Code: L98.9 Diagnosis: Principal (3) Head ache ICD Code: R51 Diagnosis: Principal (4) Infected bone flap ICD Code: T84.7XXA Diagnosis: Principal Procedures sp left scalp debridement with bone flap removal and craniectomy with epidural abscess evacuation Brief History - From Admission History from patient, ER physician communication, and review of medical records. Patient reported that last night, around 9 PM, he felt some headaches. He therefore checked his scalp, particularly at the prior surgical site area. He noted some discharge from the site and was able to scrape off some piece of skull reports he had craniotomy around this area about 1-1/2 years ago. He stated he suffered from seizures after this. Currently is under control with medications. He has been seizure free since 1-1/2 months ago. From that, patient denies any fevers/chills/nausea/vomiting/visual disturbance. Denies any dizziness/near syncopal episodes. Imaging Last Impressions Chest X-Ray 02/13/17 0000 Signed Impressions: Service Date/Time: Monday, February 13, 2017 12:47 - CONCLUSION: 1. PICC in good position. Catheter tip overlies the superior vena cava Arnie Palomares MD Head CT 02/07/17 0000 Signed Impressions: Service Date/Time: February 02:27 - CONCLUSION: Interval resolution of soft tissue air adjacent to previous left frontal craniotomy. Stable brain appearance. Flaco Scmhidt MD PE at Discharge GENERAL: NAD SKIN: Warm and dry. HEAD: There is the presence of a scalp scar which does not have any discharge and seems to be healing well. EYES: Pupils equal and round. No scleral icterus. No injection or drainage. ENT: No nasal bleeding or discharge. Mucous membranes pink and moist. NECK: Trachea midline. No JVD. CARDIOVASCULAR: Regular rate and rhythm. RESPIRATORY: No accessory muscle use. Clear to auscultation. Breath sounds equal bilaterally. GASTROINTESTINAL: Abdomen soft, non-tender, nondistended. Hepatic and splenic margins not palpable. MUSCULOSKELETAL: Extremities without clubbing, cyanosis, or edema. No obvious deformities. NEUROLOGICAL: Awake and alert. No obvious cranial nerve deficits. Motor grossly within normal limits. Five out of 5 muscle strength in the arms and legs. Normal speech. PSYCHIATRIC: Appropriate mood and affect; insight and judgment normal. Hospital Course 27 y/o male with a history of craniotomy 1 1/2 years ago due to a fall and SDH, come to the ED with complaints of a headache and drainage from old craniotomy site. Patient has also been out of seizure medications for 2 months due to lack of insurance and PCP. No seizure activity in 2 months. Headache, secondary to Scalp wound, 2 temporal holes in old craniotomy wound, new one found below the first - MSSA on culture, infectious disease following, on oxacillin. Neurosurgery following, status post 02/09/17 follow-up final cultures and recommendations. - Headache resolved. -ID clear patient to be discharged home on IV oxacillin once IV infusion as an outpatient is set up. Case was discussed with correctional case records supervisor, patient to get antibiotics at the infusion clinic. -Stop date for antibiotic is 03/12. -PICC line placed today. -Neurosurgery cleared patient for discharge. Seizure disorder, chronic, off medications for 2 months -Seizure precautions. - (+) EEG, fu neurology recommendations. Had seizure today. - Neurology consulted. Sp 1000 mg IV keppra and dose increased to 1000 mg po BID on 02/13 - Neurosurgery cleared patient for discharge on Keppra 1000 mg by mouth twice a day. DVT prophylaxison SCD. Pt Condition on Discharge: Stable Discharge Disposition: Discharge Home Discharge Time: <= 30 minutes Discharge Instructions DIET: Follow Instructions for: As Tolerated, No Restrictions Activities you can perform: Regular-No Restrictions Activities to Avoid: Concussion Sports, Contact Sports, Lifting/Bending Other Activity Instructions: Do not drive, swim, climb heights until cleared by a neurologist to do so. Follow up Referrals: Appointment for Follow Up - 2 Weeks Neurology - 3 Weeks with Ismael Ku MD New Medications: Epinephrine Inj (Epinephrine Inj) 1 Mg/Ml Inj 0.3 MG IV PUSH ONCE PRN ALLERGIC REACTION #1 VIAL Epinephrine Inj (Epinephrine Inj) 1 Mg/Ml Inj 0.3 MG SQ ONCE Give with any signs of respiratory distress. PRN ALLERGIC REACTION #1 VIAL Hydrocortisone Inj (Solu-Cortef Inj) 250 Mg Inj 250 MG IV PUSH ONCE Give over 30-60 seconds. PRN ALLERGIC REACTION #1 Ref 0 VIAL Oxacillin Inj (Oxacillin Inj) 10 Gm Inj 12 GM IV CONTINUOUS Infection #37 BAG Levetiracetam (Keppra) 500 Mg Tab 1000 MG PO BID Seizure Control #62 TAB Discontinued Medications: Levetiracetam (Keppra) 250 Mg Tab 500 MG PO BID Control Seizures #60 Ref 0 TAB Daryl Escobar MD Feb 14, 2017 00:25
[2017-02-14] MEDS: OXACILLIN INJ 2 GM in SODIUM CHLORIDE 0.9% INJ 100 ML IV SCH ×2 (00:38→05:06)
[2017-02-14 06:23] VITALS: BP 120/76; PULSE 59; RESP 20; TEMP 97.6; O2SAT 97
[2017-02-14] MEDS ORDERED: SODIUM CHLORIDE 0.9% FLUSH 10 ML FLUSH IV FLUSH SCH (09:00)
[2017-03-07] MEDS ORDERED: KEPP10002 PO (13:19)
== END 2017-02-14 06:13 | disposition home or self-care (01) | DRG 856 ==
LOC: NEPC 23:40 → INTOOBSV 02-06 02:18 → NEDA 02-06 02:18 → NEPFCDU 02-06 03:38 → OBSVTOIN 02-06 10:58 → N05A 02-06 21:41 → N03B 02-09 12:04 → N03A 02-09 14:12 → N05B 02-11 14:48
PROVIDERS: ADMIT Hospitalist; ATTEND Hospitalist
PROC: 0NB00ZZ Excision of Skull, Open Approach (ICD-10-PCS; 2017-02-09)
PROC: 0WP Anatomical Regions, General, Removal (ICD-10-PCS; 2017-02-09)
PROC: 00930ZX Drainage of Intracranial Epidural Space, Open Approach, Diagnostic (ICD-10-PCS; principal; 2017-02-09 09:32)
DX: T81.4XXA Infection following a procedure, initial encounter (principal); G06.2 Extradural and subdural abscess, unspecified; L02.811 Cutaneous abscess of head [any part, except face]; T81.30XA Disruption of wound, unspecified, initial encounter; G93.89 Other specified disorders of brain; M86.9 Osteomyelitis, unspecified; Y92.9 Unspecified place or not applicable; Y83.8 Other surgical procedures as the cause of abnormal reaction of the patient, or of later complication, without mention of misadventure at the time of the procedure; F17.210 Nicotine dependence, cigarettes, uncomplicated; G40.909 Epilepsy, unspecified, not intractable, without status epilepticus; Z91.14 Patient's other noncompliance with medication regimen; Z91.19 Patient's noncompliance with other medical treatment and regimen; R41.3 Other amnesia; R47.02 Dysphasia
CPT/HCPCS: 36569; 70450; 71010; 76937; 80048; 80053; 85025; 85610; 85652; 85730; 86140; 86403; 87015; 87040; 87070; 87102; 87116; 87147; 87176; 87186; 87205; 87206; 87641; 94150; 95819; 96374; J0690; J1580; J1940; J1953; J2060; J2150; J2250; J2270; J2370; J2405; J2700; J3010; J3370; J3480; J7050; J7120

== ENCOUNTER 2017-03-21 08:28 | Emergency (ER) | payer SELFPAY ==
[~2017-03-21 08:28] MED LIST changes: +KEPP10002 PO; -LEVE250 PO; -LEVE500 PO; +[UNRECOGNIZED DRUG - CODE] IV
[2017-03-21 08:29] VITALS: BP 130/96; PULSE 74; RESP 20; TEMP 98.1; O2SAT 99
--- NOTE | 2017-03-21 09:18 | PD ---
HPI Chief Complaint: Depression Time Seen by Provider: 09:00 Travel History International Travel<30 days: No Contact w/Intl Traveler<30days: No Traveled to known affect area: No History of Present Illness HPI Patient is a 27-year-old male who comes in because he would like to see psychiatry. Says he has a history of depression and was diagnosed with borderline personality disorder, but has not been on his medications for a while. He says he feels like he needs to get back on his medications. He denies any suicidal or homicidal thoughts. He denies any medical complaints at this time. He is currently on antibiotics via PICC line for a skull injury. This is being followed by Dr. Orellana. He has seen Dr. Orellana recently, who says everything is healing well. PFSH Past Medical History Blood Disorders: No Cancer: No Cardiovascular Problems: No Diminished Hearing: No Endocrine: No Genitourinary: No Immune Disorder: No Musculoskeletal: No Neurologic: Yes Psychiatric: No Reproductive: No Respiratory: No Immunizations Current: Yes Seizures: Yes Past Surgical History Other Surgery: Yes (brain) Social History Alcohol Use: Yes (occas. mix drinks) Tobacco Use: Yes (4-5 cigs a day) Substance Use: Yes Allergies-Medications (Allergen,Severity, Reaction): Coded Allergies: PEANUTS (Verified Allergy, Severe, throat swells, 03/21/17) Reported Meds & Prescriptions Reported Meds & Active Scripts Active Keppra (Levetiracetam) 1,000 Mg Tab 1,000 Mg PO BID Oxacillin Inj 10 Gm Inj 12 Gm IV CONTINUOUS Review of Systems Except as stated in HPI: all other systems reviewed are Neg General / Constitutional: No: Fever, Chills HENT: No: Headaches, Lightheadedness Cardiovascular: No: Chest Pain or Discomfort Respiratory: No: Shortness of Breath Gastrointestinal: No: Nausea, Vomiting, Abdominal Pain Musculoskeletal: No: Myalgias Skin: No Rash, No Change in Pigmentation Neurologic: No: Weakness, Dizziness Psychiatric: No: Suicidal Ideations, Homicidal Ideation Physical Exam Narrative GENERAL: Awake and alert, in no acute distress. SKIN: Focused skin assessment warm/dry. Well healing surgical wound scalp. HEAD: Atraumatic. The defect to the left side of the scalp, where surgery was performed. EYES: Pupils equal and round. No scleral icterus. ENT: No nasal bleeding or discharge. Mucous membranes pink and moist. NECK: Trachea midline. No JVD. CARDIOVASCULAR: Regular rate and rhythm. No murmur appreciated. RESPIRATORY: No accessory muscle use. Clear to auscultation. Breath sounds equal bilaterally. MUSCULOSKELETAL: No obvious deformities. No clubbing. No cyanosis. No edema. NEUROLOGICAL: Awake and alert. No obvious cranial nerve deficits. Motor grossly within normal limits. Normal speech. PSYCHIATRIC: Appropriate mood and affect; insight and judgment normal. Data Data Last Documented VS Vital Signs Date Time Temp Pulse Resp B/P Pulse Ox O2 Delivery O2 Flow Rate FiO2 03/21/17 09:27 16 03/21/17 08:29 98.1 74 130/96 99 Room Air Orders Complete Blood Count With Diff (03/21/17 09:05) Comprehensive Metabolic Panel (03/21/17 09:05) Psych Screen (03/21/17 09:05) Drug Screen, Random Urine (03/21/17 09:05) Labs Laboratory Tests Test 03/21/17 03/21/17 09:10 09:45 White Blood Count 7.3 TH/MM3 Red Blood Count 5.15 MIL/MM3 Hemoglobin 14.0 GM/DL Hematocrit 42.4 % Mean Corpuscular Volume 82.4 FL Mean Corpuscular Hemoglobin 27.3 PG Mean Corpuscular Hemoglobin 33.1 % Concent Red Cell Distribution Width 14.6 % Platelet Count 190 TH/MM3 Mean Platelet Volume 8.6 FL Neutrophils (%) (Auto) 61.2 % Lymphocytes (%) (Auto) 28.8 % Monocytes (%) (Auto) 8.1 % Eosinophils (%) (Auto) 1.5 % Basophils (%) (Auto) 0.4 % Neutrophils # (Auto) 4.5 TH/MM3 Lymphocytes # (Auto) 2.1 TH/MM3 Monocytes # (Auto) 0.6 TH/MM3 Eosinophils # (Auto) 0.1 TH/MM3 Basophils # (Auto) 0.0 TH/MM3 CBC Comment DIFF FINAL Differential Comment Sodium Level 134 MEQ/L Potassium Level 3.8 MEQ/L Chloride Level 102 MEQ/L Carbon Dioxide Level 24.2 MEQ/L Anion Gap 8 MEQ/L Blood Urea Nitrogen 10 MG/DL Creatinine 0.55 MG/DL Estimat Glomerular Filtration 217 ML/MIN Rate Random Glucose 85 MG/DL Calcium Level 9.1 MG/DL Total Bilirubin 0.5 MG/DL Aspartate Amino Transf 43 U/L (AST/SGOT) Alanine Aminotransferase 68 U/L (ALT/SGPT) Alkaline Phosphatase 38 U/L Total Protein 7.4 GM/DL Albumin 3.9 GM/DL Urine Opiates Screen NEG Urine Barbiturates Screen NEG Urine Amphetamines Screen NEG Urine Benzodiazepines Screen NEG Urine Cocaine Screen NEG Urine Cannabinoids Screen POS MDM Medical Decision Making Medical Screen Exam Complete: Yes Emergency Medical Condition: Yes Medical Record Reviewed: Yes Differential Diagnosis psychosis vs medication refill vs depression Narrative Course Patient is a 27 year old male who comes in complaining of feeling depressed. He has no medical complaints. He denies any suicidal or homicidal ideation. He says he is just trying to see a psychiatrist to get back on his medications. Exam shows no abnormalities. Labs sent show no acute abnormalities. Patient medically cleared for psychiatric evaluation. Patient decided he no longer wanted to wait for psychiatry. He has no SI or HI. Patient will be discharged to follow up with psychiatry as an outpatient. Advised to return at any time for any worsening symptoms. He is with a friend. Diagnosis Primary Impression: Depression Qualified Code: F32.9 - Depression, unspecified depression type Referrals: Flaco Gonzalez MD call for appointment [facility] call for appointment Patient Instructions: Depression (ED), General Instructions Additional Instructions: Follow up with psychiatry. Return as needed at any time for any worsening symptoms. Disposition: 01 DISCHARGE HOME Condition: Stable Flower Rodney MD Mar 21, 2017 09:18
[2017-03-21 09:40] LABS: AUTOMATED NEUTROPHIL # 4.5 TH/MM3 (1.8-7.7); BASOPHIL % 0.4 % (0.0-2.0); EOSINOPHIL # 0.1 TH/MM3 (0-0.4); EOSINOPHIL % 1.5 % (0.0-4.0); HEMATOCRIT 42.4 % (39.0-51.0); HEMO FLAGS DIFF FINAL; LYMPH % 28.8 % (9.0-44.0); LYMPHOCYTE # 2.1 TH/MM3 (1.0-4.8); MEAN CELL VOLUME 82.4 FL (80.0-100.0); MEAN CORPUSCULAR HEMOGLOBIN 27.3 PG (27.0-34.0); MEAN CORPUSCULAR HGB CONC 33.1 % (32.0-36.0); MONO % 8.1 % (0.0-8.0); NEUT % 61.2 % (16.0-70.0); PLATELET COUNT 190 TH/MM3 (150-450); RED BLOOD COUNT 5.15 MIL/MM3 (4.50-5.90); RED CELL DISTRIBUTION WIDTH 14.6 % (11.6-17.2); WHITE BLOOD COUNT 7.3 TH/MM3 (4.0-11.0)
[2017-03-21 09:52] LABS: ANION GAP 8 MEQ/L (5-15); AST (GOT) 43 U/L (15-37); BICARBONATE 24.2 MEQ/L (21.0-32.0); BLOOD UREA NITROGEN 10 MG/DL (7-18); CHLORIDE 102 MEQ/L (98-107); GLOMERULAR FILTRATION RATE 217 ML/MIN (>89); POTASSIUM 3.8 MEQ/L (3.5-5.1); SODIUM (NA) 134 MEQ/L (136-145)
[2017-03-21 09:54] LABS: ALT (GPT) 68 U/L (12-78)
[2017-03-21 09:56] LABS: ALKALINE PHOSPHATASE 38 U/L (45-117); TOTAL BILIRUBIN ADULT 0.5 MG/DL (0.2-1.0)
[2017-03-21 10:20] LABS: AMPHETAMINE, URINE NEG (NEG); BARBITURATES, URINE NEG (NEG); COCAINE, URINE NEG (NEG)
== END 2017-03-21 10:23 | disposition left against medical advice (07) ==
LOC: NEPD 08:28
DX: F32.9 Major depressive disorder, single episode, unspecified (principal); R56.9 Unspecified convulsions; F60.3 Borderline personality disorder; F17.210 Nicotine dependence, cigarettes, uncomplicated; Z79.899 Other long term (current) drug therapy
CPT/HCPCS: 80053; 80307; 85025; 99283